=== PATIENT | male | born 1965 | race Caucasian/White ===

== ENCOUNTER 2018-02-24 02:48 | Inpatient (IN) ==
[2018-02-24] MEDS ORDERED: Ipratropium/Albuterol Neb 3 ML IH ONE (03:10)
[2018-02-24] MEDS ORDERED: methylPREDNISolone 125 MG/2 ML VIAL IVP ONE (03:11)
[2018-02-24] MEDS ORDERED: 0.9 % Sodium Chloride 1,000 ML IVC ONE (03:12)
[2018-02-24 03:24] LABS: Basophils % 0.5 %; Eosinophils # 0.1 K/mcL (0.0-0.6); Eosinophils % 0.9 %; Hematocrit 37.9 % (37.5-50.1); Hemoglobin 12.4 g/dL (12.9-16.9); Immature Granulocytes % 2.7 % (0-4); Lymphocytes # 1.1 K/mcL (0.6-4.6); Lymphocytes % 12.7 %; Mean Corpuscular HGB Conc 32.7 g/dL (31.6-35.5); Mean Corpuscular Hemoglobin 29.7 pg (28.0-33.3); Mean Corpuscular Volume 90.9 fL (83.0-100.0); Mean Platelet Volume 9.3 fL (9.4-12.4); Monocytes # 0.3 K/mcL (0.0-1.3); Monocytes % 3.6 %; Neutrophils # 6.9 K/mcL (1.6-8.9); Platelet Count 201 K/mcL (140-400); Red Blood Count 4.17 M/mcL (4.19-5.50); Red Cell Distribution Width 14.3 % (11.5-14.5); Segmented Neutrophils % 79.6 %
[2018-02-24] MEDS ORDERED: cefTRIAXone 1,000 MG in Water for inj. (sterile) 20 ML 10 ML IVP ONE (03:35)
[2018-02-24] MEDS ORDERED: Azithromycin 500 MG in D5% in Water 250 ML IVPB ONE (03:35)
[2018-02-24] MEDS ORDERED: Acetaminophen IV 1,000 MG/100 ML INFUS..BTL IVPB ONE (03:36)
--- NOTE | 2018-02-24 03:40 | Emergency Department Note ---
Disposition Clinical Impression: Pneumonia Qualifiers: Aspiration pneumonia type: unspecified Laterality: unspecified laterality Lung location: unspecified part of lung Disposition: Admitted As Inpatient Condition: Good General Adult HPI - General Chief complaint: ED Shortness of Breath/Dyspnea Stated complaint: COLIN Time Seen by Provider: 02/24/18 02:53 Source: patient, family Limitations: no limitations - History of Present Illness Pain Scale: 0 - Related Data Home Medications Medication Instructions Recorded Confirmed Amitriptyline [Elavil] 150 mg PO HS 02/24/18 02/24/18 Amlodipine Besylate 10 mg PO DAILY 02/24/18 02/24/18 Atorvastatin [Lipitor] 20 mg PO HS 02/24/18 02/24/18 Butalbit/Acetamin/Caff/Codeine 1 each PO PRN PRN 02/24/18 02/24/18 [Aoirfz-Qitj-Drhanqrwgdl-Codein] Chlorpromazine HCl 10 mg PO TID 02/24/18 02/24/18 Divalproex Sodium [Depakote] 750 mg PO BID 02/24/18 02/24/18 Donepezil [Aricept] 5 mg PO HS 02/24/18 02/24/18 Folic Acid 1 mg PO DAILY 02/24/18 02/24/18 Furosemide [Lasix] 20 mg PO DAILY 02/24/18 02/24/18 HYDROcodone/Acet 5/325 mg [[place] 1 tab PO Q6H PRN 02/24/18 02/24/18 5-325 mg] Levothyroxine Sodium [Synthroid] 200 mcg PO DAILY 02/24/18 02/24/18 Metoprolol Succinate 50 mg PO HS 02/24/18 02/25/18 Metoprolol Succinate 100 mg PO DAILY 02/24/18 02/24/18 Pantoprazole Sodium [Protonix] 40 mg PO DAILY 02/24/18 02/24/18 SUMAtriptan Succinate [[place] 6 mg SQ PRN PRN MDD 12mg 02/24/18 02/24/18 Dosepro] SUMAtriptan succinate [Imitrex] 25 mg PO Q2H PRN MDD 50 MG 02/24/18 02/24/18 clonazePAM [Klonopin] 1 mg PO TID 02/24/18 02/24/18 Albuterol Sulfate [Albuterol 1 puff IH Q6H PRN 02/26/18 02/26/18 Inhaler] Previous Rx's Medication Instructions Recorded Levofloxacin [Levaquin] 750 mg PO DAILY #5 tablet 02/26/18 Allergies Allergy/AdvReac Type Severity Reaction Status Date / Time Penicillins AdvReac Intermediate Vomiting Verified 02/24/18 02:49 Past Medical History - Past Medical History Medical history: Reports: COPD, hyperlipidemia, hypertension, migraine, thyroid disease Surgical history: Reports: knee replacement Psychiatric history: Reports: anxiety, depression - Social History Smoking Status: Never smoker Smokeless Tobacco Status: No Alcohol use: Reports: none Drug use: Reports: none Physical Exam - General Limitations: no limitations General appearance: alert Course Vital Signs Temperature 98.1 F 02/24/18 02:49 Pulse Rate 140 02/24/18 02:49 Respiratory Rate 29 02/24/18 02:49 Blood Pressure 129/75 02/24/18 02:49 O2 Sat by Pulse Oximetry 89 02/24/18 02:49 Temperature 97.8 F 02/26/18 10:15 Pulse Rate 89 02/26/18 10:15 Respiratory Rate 18 02/26/18 10:15 Blood Pressure 110/75 02/26/18 10:15 O2 Sat by Pulse Oximetry 96 02/26/18 10:15 Oxygen Delivery Oxygen Delivery Nasal Cannula Medical Decision Making - Lab Data Result diagrams: 02/26/18 04:06 02/26/18 04:06 Lab Results 02/24/18 02/24/18 02/24/18 Range/Units 03:08 03:08 03:09 WBC 8.6 (4.3-11.1) K/mcL RBC 4.17 L (4.19-5.50) M/mcL Hgb 12.4 L (12.9-16.9) g/dL Hct 37.9 (37.5-50.1) % MCV 90.9 (83.0-100.0) fL MCH 29.7 (28.0-33.3) pg MCHC 32.7 (31.6-35.5) g/dL RDW 14.3 (11.5-14.5) % Plt Count 201 (140-400) K/mcL MPV 9.3 L (9.4-12.4) fL Immature Gran % 2.7 (0-4) % Seg Neutrophils % 79.6 % Lymphocytes % 12.7 % Monocytes % 3.6 % Eosinophils % 0.9 % Basophils % 0.5 % Neutrophils # 6.9 (1.6-8.9) K/mcL Lymphocytes # 1.1 (0.6-4.6) K/mcL Monocytes # 0.3 (0.0-1.3) K/mcL Eosinophils # 0.1 (0.0-0.6) K/mcL Basophils # 0.0 (0.0-0.2) K/mcL Platelet Estimate (Normal) Hypochromasia (Not Present) PT (9.4-12.1) Seconds INR APTT (26.0-36.0) Seconds Sodium 134 L (136-145) mEq/L Potassium 4.5 (3.5-5.1) mEq/L Chloride 95 L (98-107) mEq/L Carbon Dioxide 26 (23-29) mEq/L BUN 8 (6-20) mg/dL Creatinine 0.95 (0.70-1.30) mg/dL Est GFR ( Amer) > 60 (> 60) Est GFR (Non-Af Amer) > 60 (> 60) BUN/Creatinine Ratio 8 (6-26) Glucose 145 H (70-105) mg/dL Calculated Osmolality 279 L (280-300) Lactic Acid 4.2 H* (0.5-2.2) mmol/L Calcium 9.3 (8.6-10.3) mg/dL Total Bilirubin 0.5 (0.3-1.0) mg/dL AST 26 (13-39) Units/L ALT 38 (7-52) Units/L Alkaline Phosphatase 62 (34-104) Units/L Troponin I < 0.03 (< 0.04) ng/mL Serum Total Protein 7.0 (6.4-8.9) g/dL Albumin 4.1 (3.5-5.7) g/dL Globulin 2.9 (2.4-3.5) g/dL Albumin/Globulin Ratio 1.4 (1.1-2.2) Procalcitonin (<=0.10) ng/mL Urine Color (Yellow) Urine Clarity (Clear) Urine pH (5.0-8.0) pH Units Ur Specific [place] (1.010-1.025) Urine Protein (Neg-Trace) mg/dL Urine Glucose (UA) (Normal) mg/dL Urine Ketones (Negative) mg/dL Urine Blood (Negative) Urine Nitrite (Negative) Urine Bilirubin (Negative) Urine Urobilinogen (Normal) mg/dL Ur Leukocyte Esterase (Negative) Nasal Screen MRSA (PCR) (Negative) Random Tobramycin mcg/mL 02/24/18 02/24/18 02/24/18 Range/Units 03:09 06:25 13:53 WBC (4.3-11.1) K/mcL RBC (4.19-5.50) M/mcL Hgb (12.9-16.9) g/dL Hct (37.5-50.1) % MCV (83.0-100.0) fL MCH (28.0-33.3) pg MCHC (31.6-35.5) g/dL RDW (11.5-14.5) % Plt Count (140-400) K/mcL MPV (9.4-12.4) fL Immature Gran % (0-4) % Seg Neutrophils % % Lymphocytes % % Monocytes % % Eosinophils % % Basophils % % Neutrophils # (1.6-8.9) K/mcL Lymphocytes # (0.6-4.6) K/mcL Monocytes # (0.0-1.3) K/mcL Eosinophils # (0.0-0.6) K/mcL Basophils # (0.0-0.2) K/mcL Platelet Estimate (Normal) Hypochromasia (Not Present) PT 10.2 (9.4-12.1) Seconds INR 1.0 APTT 33.5 (26.0-36.0) Seconds Sodium (136-145) mEq/L Potassium (3.5-5.1) mEq/L Chloride (98-107) mEq/L Carbon Dioxide (23-29) mEq/L BUN (6-20) mg/dL Creatinine (0.70-1.30) mg/dL Est GFR ( Amer) (> 60) Est GFR (Non-Af Amer) (> 60) BUN/Creatinine Ratio (6-26) Glucose (70-105) mg/dL Calculated Osmolality (280-300) Lactic Acid 3.4 H (0.5-2.2) mmol/L Calcium (8.6-10.3) mg/dL Total Bilirubin (0.3-1.0) mg/dL AST (13-39) Units/L ALT (7-52) Units/L Alkaline Phosphatase (34-104) Units/L Troponin I (< 0.04) ng/mL Serum Total Protein (6.4-8.9) g/dL Albumin (3.5-5.7) g/dL Globulin (2.4-3.5) g/dL Albumin/Globulin Ratio (1.1-2.2) Procalcitonin (<=0.10) ng/mL Urine Color (Yellow) Urine Clarity (Clear) Urine pH (5.0-8.0) pH Units Ur Specific [place] (1.010-1.025) Urine Protein (Neg-Trace) mg/dL Urine Glucose (UA) (Normal) mg/dL Urine Ketones (Negative) mg/dL Urine Blood (Negative) Urine Nitrite (Negative) Urine Bilirubin (Negative) Urine Urobilinogen (Normal) mg/dL Ur Leukocyte Esterase (Negative) Nasal Screen MRSA (PCR) (Negative) Random Tobramycin 1.2 mcg/mL 02/24/18 02/24/18 02/25/18 Range/Units 13:53 17:19 04:19 WBC 13.8 H D (4.3-11.1) K/mcL RBC 3.25 L (4.19-5.50) M/mcL Hgb 9.3 L D (12.9-16.9) g/dL Hct 29.0 L (37.5-50.1) % MCV 89.2 (83.0-100.0) fL MCH 28.6 (28.0-33.3) pg MCHC 32.1 (31.6-35.5) g/dL RDW 14.3 (11.5-14.5) % Plt Count 191 (140-400) K/mcL MPV 9.6 (9.4-12.4) fL Immature Gran % 5.1 H (0-4) % Seg Neutrophils % 82.5 % Lymphocytes % 7.2 % Monocytes % 4.8 % Eosinophils % 0.0 % Basophils % 0.4 % Neutrophils # 11.4 H (1.6-8.9) K/mcL Lymphocytes # 1.0 (0.6-4.6) K/mcL Monocytes # 0.7 (0.0-1.3) K/mcL Eosinophils # 0.0 (0.0-0.6) K/mcL Basophils # 0.1 (0.0-0.2) K/mcL Platelet Estimate Normal (Normal) Hypochromasia Present A (Not Present) PT (9.4-12.1) Seconds INR APTT (26.0-36.0) Seconds Sodium (136-145) mEq/L Potassium (3.5-5.1) mEq/L Chloride (98-107) mEq/L Carbon Dioxide (23-29) mEq/L BUN (6-20) mg/dL Creatinine (0.70-1.30) mg/dL Est GFR ( Amer) (> 60) Est GFR (Non-Af Amer) (> 60) BUN/Creatinine Ratio (6-26) Glucose (70-105) mg/dL Calculated Osmolality (280-300) Lactic Acid 5.3 H* (0.5-2.2) mmol/L Calcium (8.6-10.3) mg/dL Total Bilirubin (0.3-1.0) mg/dL AST (13-39) Units/L ALT (7-52) Units/L Alkaline Phosphatase (34-104) Units/L Troponin I (< 0.04) ng/mL Serum Total Protein (6.4-8.9) g/dL Albumin (3.5-5.7) g/dL Globulin (2.4-3.5) g/dL Albumin/Globulin Ratio (1.1-2.2) Procalcitonin (<=0.10) ng/mL Urine Color (Yellow) Urine Clarity (Clear) Urine pH (5.0-8.0) pH Units Ur Specific [place] (1.010-1.025) Urine Protein (Neg-Trace) mg/dL Urine Glucose (UA) (Normal) mg/dL Urine Ketones (Negative) mg/dL Urine Blood (Negative) Urine Nitrite (Negative) Urine Bilirubin (Negative) Urine Urobilinogen (Normal) mg/dL Ur Leukocyte Esterase (Negative) Nasal Screen MRSA (PCR) Negative (Negative) Random Tobramycin mcg/mL 02/25/18 02/25/18 02/25/18 Range/Units 04:19 04:19 08:01 WBC (4.3-11.1) K/mcL RBC (4.19-5.50) M/mcL Hgb (12.9-16.9) g/dL Hct (37.5-50.1) % MCV (83.0-100.0) fL MCH (28.0-33.3) pg MCHC (31.6-35.5) g/dL RDW (11.5-14.5) % Plt Count (140-400) K/mcL MPV (9.4-12.4) fL Immature Gran % (0-4) % Seg Neutrophils % % Lymphocytes % % Monocytes % % Eosinophils % % Basophils % % Neutrophils # (1.6-8.9) K/mcL Lymphocytes # (0.6-4.6) K/mcL Monocytes # (0.0-1.3) K/mcL Eosinophils # (0.0-0.6) K/mcL Basophils # (0.0-0.2) K/mcL Platelet Estimate (Normal) Hypochromasia (Not Present) PT (9.4-12.1) Seconds INR APTT (26.0-36.0) Seconds Sodium 131 L (136-145) mEq/L Potassium 4.4 (3.5-5.1) mEq/L Chloride 98 (98-107) mEq/L Carbon Dioxide 24 (23-29) mEq/L BUN 13 (6-20) mg/dL Creatinine 0.76 (0.70-1.30) mg/dL Est GFR ( Amer) > 60 (> 60) Est GFR (Non-Af Amer) > 60 (> 60) BUN/Creatinine Ratio 17 (6-26) Glucose 217 H (70-105) mg/dL Calculated Osmolality 279 L (280-300) Lactic Acid 2.7 H (0.5-2.2) mmol/L Calcium 8.7 (8.6-10.3) mg/dL Total Bilirubin (0.3-1.0) mg/dL AST (13-39) Units/L ALT (7-52) Units/L Alkaline Phosphatase (34-104) Units/L Troponin I (< 0.04) ng/mL Serum Total Protein (6.4-8.9) g/dL Albumin (3.5-5.7) g/dL Globulin (2.4-3.5) g/dL Albumin/Globulin Ratio (1.1-2.2) Procalcitonin 0.11 H (<=0.10) ng/mL Urine Color (Yellow) Urine Clarity (Clear) Urine pH (5.0-8.0) pH Units Ur Specific [place] (1.010-1.025) Urine Protein (Neg-Trace) mg/dL Urine Glucose (UA) (Normal) mg/dL Urine Ketones (Negative) mg/dL Urine Blood (Negative) Urine Nitrite (Negative) Urine Bilirubin (Negative) Urine Urobilinogen (Normal) mg/dL Ur Leukocyte Esterase (Negative) Nasal Screen MRSA (PCR) (Negative) Random Tobramycin mcg/mL 02/25/18 02/25/18 02/26/18 Range/Units 11:51 20:00 04:06 WBC 14.2 H 11.9 H (4.3-11.1) K/mcL RBC 3.49 L 3.48 L (4.19-5.50) M/mcL Hgb 10.3 L 10.1 L (12.9-16.9) g/dL Hct 31.6 L 31.3 L (37.5-50.1) % MCV 90.5 89.9 (83.0-100.0) fL MCH 29.5 29.0 (28.0-33.3) pg MCHC 32.6 32.3 (31.6-35.5) g/dL RDW 14.4 14.9 H (11.5-14.5) % Plt Count 205 218 (140-400) K/mcL MPV 9.4 9.2 L (9.4-12.4) fL Immature Gran % 5.0 H 9.9 H (0-4) % Seg Neutrophils % 81.8 65.0 % Lymphocytes % 7.7 17.9 % Monocytes % 5.1 6.6 % Eosinophils % 0.0 0.3 % Basophils % 0.4 0.3 % Neutrophils # 11.6 H 7.7 (1.6-8.9) K/mcL Lymphocytes # 1.1 2.1 (0.6-4.6) K/mcL Monocytes # 0.7 0.8 (0.0-1.3) K/mcL Eosinophils # 0.0 0.0 (0.0-0.6) K/mcL Basophils # 0.1 0.0 (0.0-0.2) K/mcL Platelet Estimate Normal (Normal) Hypochromasia (Not Present) PT (9.4-12.1) Seconds INR APTT (26.0-36.0) Seconds Sodium (136-145) mEq/L Potassium (3.5-5.1) mEq/L Chloride (98-107) mEq/L Carbon Dioxide (23-29) mEq/L BUN (6-20) mg/dL Creatinine (0.70-1.30) mg/dL Est GFR ( Amer) (> 60) Est GFR (Non-Af Amer) (> 60) BUN/Creatinine Ratio (6-26) Glucose (70-105) mg/dL Calculated Osmolality (280-300) Lactic Acid (0.5-2.2) mmol/L Calcium (8.6-10.3) mg/dL Total Bilirubin (0.3-1.0) mg/dL AST (13-39) Units/L ALT (7-52) Units/L Alkaline Phosphatase (34-104) Units/L Troponin I (< 0.04) ng/mL Serum Total Protein (6.4-8.9) g/dL Albumin (3.5-5.7) g/dL Globulin (2.4-3.5) g/dL Albumin/Globulin Ratio (1.1-2.2) Procalcitonin (<=0.10) ng/mL Urine Color Yellow (Yellow) Urine Clarity Clear (Clear) Urine pH 6.0 (5.0-8.0) pH Units Ur Specific [place] 1.019 (1.010-1.025) Urine Protein Negative (Neg-Trace) mg/dL Urine Glucose (UA) Normal (Normal) mg/dL Urine Ketones Negative (Negative) mg/dL Urine Blood Negative (Negative) Urine Nitrite Negative (Negative) Urine Bilirubin Negative (Negative) Urine Urobilinogen Normal (Normal) mg/dL Ur Leukocyte Esterase Negative (Negative) Nasal Screen MRSA (PCR) (Negative) Random Tobramycin mcg/mL 02/26/18 02/26/18 Range/Units 04:06 04:06 WBC (4.3-11.1) K/mcL RBC (4.19-5.50) M/mcL Hgb (12.9-16.9) g/dL Hct (37.5-50.1) % MCV (83.0-100.0) fL MCH (28.0-33.3) pg MCHC (31.6-35.5) g/dL RDW (11.5-14.5) % Plt Count (140-400) K/mcL MPV (9.4-12.4) fL Immature Gran % (0-4) % Seg Neutrophils % % Lymphocytes % % Monocytes % % Eosinophils % % Basophils % % Neutrophils # (1.6-8.9) K/mcL Lymphocytes # (0.6-4.6) K/mcL Monocytes # (0.0-1.3) K/mcL Eosinophils # (0.0-0.6) K/mcL Basophils # (0.0-0.2) K/mcL Platelet Estimate (Normal) Hypochromasia (Not Present) PT (9.4-12.1) Seconds INR APTT (26.0-36.0) Seconds Sodium 139 (136-145) mEq/L Potassium 4.0 (3.5-5.1) mEq/L Chloride 103 (98-107) mEq/L Carbon Dioxide 27 (23-29) mEq/L BUN 15 (6-20) mg/dL Creatinine 0.89 (0.70-1.30) mg/dL Est GFR ( Amer) > 60 (> 60) Est GFR (Non-Af Amer) > 60 (> 60) BUN/Creatinine Ratio 17 (6-26) Glucose 158 H (70-105) mg/dL Calculated Osmolality 292 (280-300) Lactic Acid 1.8 (0.5-2.2) mmol/L Calcium 8.7 (8.6-10.3) mg/dL Total Bilirubin (0.3-1.0) mg/dL AST (13-39) Units/L ALT (7-52) Units/L Alkaline Phosphatase (34-104) Units/L Troponin I (< 0.04) ng/mL Serum Total Protein (6.4-8.9) g/dL Albumin (3.5-5.7) g/dL Globulin (2.4-3.5) g/dL Albumin/Globulin Ratio (1.1-2.2) Procalcitonin (<=0.10) ng/mL Urine Color (Yellow) Urine Clarity (Clear) Urine pH (5.0-8.0) pH Units Ur Specific [place] (1.010-1.025) Urine Protein (Neg-Trace) mg/dL Urine Glucose (UA) (Normal) mg/dL Urine Ketones (Negative) mg/dL Urine Blood (Negative) Urine Nitrite (Negative) Urine Bilirubin (Negative) Urine Urobilinogen (Normal) mg/dL Ur Leukocyte Esterase (Negative) Nasal Screen MRSA (PCR) (Negative) Random Tobramycin mcg/mL Attestation Statement - Attestation Attestation: I examined this patient and my medical decision-making was reviewed with the Resident Physician. I agree with the documented findings, disposition and treatment plan as described except to the extent set forth below. Findings consistent with possibly pneumonia, will calculate curb 65 score and reassess and determine need for admission. Patient will need community pneumonia coverage , final disposition is pending results of imaging and response to intervention as well as calculation of curb 65. The high probability of a clinically significant, sudden or life threatening deterioration of the [respiratory] system(s) required my full and direct attention, intervention and personal management. The aggregate critical care time was [35] minutes. This time is in addition to time spent performing reported procedures but includes the following: none Patient has possible HCAP, will need admission for further management.
[2018-02-24] MEDS ORDERED: Piperacillin/Tazobactam 3.375 GM in 0.9 % Sodium Chloride Mini Bag 100 ML IVPB ONE (03:42)
[2018-02-24 03:44] LABS: Alanine Aminotransferase 38 Units/L (7-52); Albumin 4.1 g/dL (3.5-5.7); Albumin/Globulin Ratio 1.4 (1.1-2.2); Alkaline Phosphatase 62 Units/L (34-104); Aspartate Amino Transferase 26 Units/L (13-39); BUN/Creatinine Ratio 8 (6-26); Bilirubin,Total 0.5 mg/dL (0.3-1.0); Blood Urea Nitrogen 8 mg/dL (6-20); Calcium 9.3 mg/dL (8.6-10.3); Carbon Dioxide 26 mEq/L (23-29); Chloride 95 mEq/L (98-107); Globulin 2.9 g/dL (2.4-3.5); Glucose 145 mg/dL (70-105); Osmolality,Calculated 279 (280-300); Potassium 4.5 mEq/L (3.5-5.1); Sodium 134 mEq/L (136-145); eGFR For African Americans > 60 (> 60); eGFR For Non-African Americans > 60 (> 60)
[2018-02-24] MEDS ORDERED: Isovue-370 500 ML INFUS..BTL IV ONE (03:44)
[2018-02-24 03:45] LABS: Troponin I < 0.03 ng/mL (< 0.04)
[2018-02-24] MEDS ORDERED: TOBRAMYCIN SULF IVPB SCH ×2 (04:00→06:00)
[2018-02-24] MEDS ORDERED: WATER IVPB SCH ×2 (04:00→06:00)
[2018-02-24] MEDS ORDERED: D5 IVPB SCH ×2 (04:00→06:00)
[2018-02-24 04:34] LABS: Prothrombin Time 10.2 Seconds (9.4-12.1)
--- NOTE | 2018-02-24 04:34 | Emergency Department Note ---
Disposition Clinical Impression: Pneumonia Qualifiers: Pneumonia type: due to unspecified organism Laterality: unspecified laterality Lung location: unspecified part of lung Qualified Code(s): J18.9 - Pneumonia, unspecified organism Sepsis Qualifiers: Sepsis type: sepsis due to unspecified organism Qualified Code(s): A41.9 - Sepsis, unspecified organism Disposition: Admitted As Inpatient Condition: Fair General Adult HPI - General Chief complaint: ED Shortness of Breath/Dyspnea Stated complaint: COLIN Time Seen by Provider: 02/24/18 02:53 Source: patient, family Limitations: no limitations Nursing Notes Reviewed: Yes Vital Signs Reviewed: Yes - History of Present Illness HPI Narrative: 52-year-old male presents with shortness of breath since yesterday. Patient has a history of aspiration pneumonia in August this year. He was admitted to ICU for 10 days. Since then he frequently had pneumonia. He was admitted for pneumonia in [place] a month ago. Patient is on 4 L NS at home. Patient reported mild dry cough and shortness of breath since yesterday. Started feeling chills today. No chest pain. Onset (ago): day(s) (2) Location: other (lungs) Pain Scale: 0 Consistency: constant Improves with: nothing Associated symptoms: Reports: cough. Denies: confusion, chest pain - Related Data Allergies Allergy/AdvReac Type Severity Reaction Status Date / Time Penicillins AdvReac Intermediate Vomiting Verified 02/24/18 02:49 Constitutional: Reports: chills. Denies: fever, weakness, weight change Eyes: Denies: eye pain, eye discharge, vision change ENT ED: Denies: ear pain, throat pain, dental pain, hearing loss, epistaxis, congestion, dysphagia Cardiovascular: Denies: chest pain, palpitations, dyspnea on exertion, edema, syncope Respiratory: Reports: cough, dyspnea. Denies: wheezes, hemoptysis, stridor Gastrointestinal: Denies: abdominal pain, nausea, vomiting, diarrhea, constipation, hematemesis, melena, hematochezia Genitourinary: Denies: urgency, dysuria, frequency, hematuria Musculoskeletal: Denies: back pain, neck pain, arthralgia, myalgia Integumentary: Denies: rash, abrasion, lesions Neurological: Denies: headache, weakness, numbness, paresthesias, confusion, abnormal gait, vertigo Psychiatric: Denies: anxiety, depression, suicidal thoughts, homicidal thoughts , auditory hallucinations, visual hallucinations Endocrine: Denies: fatigue Hematological/Lymphatic: Denies: easy bleeding, easy bruising Allergic/Immunologic: Denies: facial swelling, urticaria Past Medical History - Past Medical History Medical history: Reports: COPD, hyperlipidemia, hypertension, migraine, thyroid disease Surgical history: Reports: knee replacement Psychiatric history: Reports: anxiety, depression - Social History Smoking Status: Never smoker Smokeless Tobacco Status: No Alcohol use: Reports: none Drug use: Reports: none Physical Exam - General Limitations: no limitations General appearance: alert - Head Head exam: atraumatic, normocephalic, normal inspection - Eye Eye exam: Present: normal appearance, PERRL, EOMI - ENT ENT exam: normal exam, normal oropharynx, mucous membranes moist - Neck Neck exam: Present: normal inspection, full ROM, trachea midline - Chest Chest inspection: Present: normal inspection, symmetric chest wall rise - Respiratory Respiratory exam: Present: respiratory distress, other (Bilateral lungs sound diminished) - Cardiovascular Cardiovascular exam: Present: tachycardia - Abdominal Exam Abdominal exam: Present: soft, Non-Tender. Absent: tenderness, distention, guarding, rebound, rigidity - Extremities Exam Extremities exam: Present: normal inspection, full ROM. Absent: tenderness, pedal edema - Back Exam Back exam: Present: normal inspection, full ROM. Absent: tenderness - Neurological Exam Neurological exam: Present: alert, oriented X3 - Psychiatric Psychiatric exam: Present: normal affect, normal mood - Skin Skin exam: Present: warm, dry, intact Course Vital Signs Temperature 98.1 F 02/24/18 02:49 Pulse Rate 140 02/24/18 02:49 Respiratory Rate 29 02/24/18 02:49 Blood Pressure 129/75 02/24/18 02:49 O2 Sat by Pulse Oximetry 89 02/24/18 02:49 Temperature 98.1 F 02/24/18 02:49 Pulse Rate 115 02/24/18 05:47 Respiratory Rate 31 02/24/18 05:47 Blood Pressure 116/80 02/24/18 05:47 O2 Sat by Pulse Oximetry 93 02/24/18 05:47 Oxygen Delivery Oxygen Delivery Nasal Cannula Medical Decision Making - MDM Narrative Medical decision making narrative: 52-year-old male with a history of aspiration pneumonia, frequent pneumonia presents with shortness breath for 2 days. Physical exam: Labored breath with respiratory rate 27, O2 sat 89 with 4 L nasal cannula, bilateral lung sounds diminished, tachycardia with heart rates 140. Labs white cell normal, but lactic acid 4.2. Chest x-ray: Pneumonia. CTA ruled out PE. Impression pneumonia with sepsis. IV fluids and antibiotics started in ER. Patient will be admitted. Spoke with the hospitalist in the phone. Patient is accepted. - Lab Data Lab results reviewed: Yes I reviewed the patient's lab results. Result diagrams: 02/24/18 03:08 02/24/18 03:08 Lab Results 02/24/18 02/24/18 02/24/18 Range/Units 03:08 03:08 03:09 WBC 8.6 (4.3-11.1) K/mcL RBC 4.17 L (4.19-5.50) M/mcL Hgb 12.4 L (12.9-16.9) g/dL Hct 37.9 (37.5-50.1) % MCV 90.9 (83.0-100.0) fL MCH 29.7 (28.0-33.3) pg MCHC 32.7 (31.6-35.5) g/dL RDW 14.3 (11.5-14.5) % Plt Count 201 (140-400) K/mcL MPV 9.3 L (9.4-12.4) fL Immature Gran % 2.7 (0-4) % Seg Neutrophils % 79.6 % Lymphocytes % 12.7 % Monocytes % 3.6 % Eosinophils % 0.9 % Basophils % 0.5 % Neutrophils # 6.9 (1.6-8.9) K/mcL Lymphocytes # 1.1 (0.6-4.6) K/mcL Monocytes # 0.3 (0.0-1.3) K/mcL Eosinophils # 0.1 (0.0-0.6) K/mcL Basophils # 0.0 (0.0-0.2) K/mcL PT (9.4-12.1) Seconds INR APTT (26.0-36.0) Seconds Sodium 134 L (136-145) mEq/L Potassium 4.5 (3.5-5.1) mEq/L Chloride 95 L (98-107) mEq/L Carbon Dioxide 26 (23-29) mEq/L BUN 8 (6-20) mg/dL Creatinine 0.95 (0.70-1.30) mg/dL Est GFR ( Amer) > 60 (> 60) Est GFR (Non-Af Amer) > 60 (> 60) BUN/Creatinine Ratio 8 (6-26) Glucose 145 H (70-105) mg/dL Calculated Osmolality 279 L (280-300) Lactic Acid 4.2 H* (0.5-2.2) mmol/L Calcium 9.3 (8.6-10.3) mg/dL Total Bilirubin 0.5 (0.3-1.0) mg/dL AST 26 (13-39) Units/L ALT 38 (7-52) Units/L Alkaline Phosphatase 62 (34-104) Units/L Troponin I < 0.03 (< 0.04) ng/mL Serum Total Protein 7.0 (6.4-8.9) g/dL Albumin 4.1 (3.5-5.7) g/dL Globulin 2.9 (2.4-3.5) g/dL Albumin/Globulin Ratio 1.4 (1.1-2.2) 02/24/18 Range/Units 03:09 WBC (4.3-11.1) K/mcL RBC (4.19-5.50) M/mcL Hgb (12.9-16.9) g/dL Hct (37.5-50.1) % MCV (83.0-100.0) fL MCH (28.0-33.3) pg MCHC (31.6-35.5) g/dL RDW (11.5-14.5) % Plt Count (140-400) K/mcL MPV (9.4-12.4) fL Immature Gran % (0-4) % Seg Neutrophils % % Lymphocytes % % Monocytes % % Eosinophils % % Basophils % % Neutrophils # (1.6-8.9) K/mcL Lymphocytes # (0.6-4.6) K/mcL Monocytes # (0.0-1.3) K/mcL Eosinophils # (0.0-0.6) K/mcL Basophils # (0.0-0.2) K/mcL PT 10.2 (9.4-12.1) Seconds INR 1.0 APTT 33.5 (26.0-36.0) Seconds Sodium (136-145) mEq/L Potassium (3.5-5.1) mEq/L Chloride (98-107) mEq/L Carbon Dioxide (23-29) mEq/L BUN (6-20) mg/dL Creatinine (0.70-1.30) mg/dL Est GFR ( Amer) (> 60) Est GFR (Non-Af Amer) (> 60) BUN/Creatinine Ratio (6-26) Glucose (70-105) mg/dL Calculated Osmolality (280-300) Lactic Acid (0.5-2.2) mmol/L Calcium (8.6-10.3) mg/dL Total Bilirubin (0.3-1.0) mg/dL AST (13-39) Units/L ALT (7-52) Units/L Alkaline Phosphatase (34-104) Units/L Troponin I (< 0.04) ng/mL Serum Total Protein (6.4-8.9) g/dL Albumin (3.5-5.7) g/dL Globulin (2.4-3.5) g/dL Albumin/Globulin Ratio (1.1-2.2) - Radiology Data Radiology results reviewed: Yes I reviewed the patient's radiology results.
[2018-02-24 04:37] LABS: Activated Partial Thrombo Time 33.5 Seconds (26.0-36.0)
[2018-02-24] MEDS: 0.9 % Sodium Chloride 1,000 ML IVC SCH ×2 (04:48→05:03)
[2018-02-24] MEDS ORDERED: 0.9 % Sodium Chloride 500 ML IVC ONE (05:21)
[2018-02-24] MEDS ORDERED: Aminoglycoside Consult 1 EACH MC ONE ×2 (05:34)
[2018-02-24] MEDS ORDERED: Acetaminophen 325 MG TABLET PO PRN (08:33)
[2018-02-24] MEDS ORDERED: Naloxone 0.4 MG/ML INJ IVP PRN (08:33)
[2018-02-24] MEDS ORDERED: SUMAtriptan 6 MG/0.5 ML SQ PRN (08:34)
[2018-02-24] MEDS ORDERED: Acetaminophen/Butalbital/CaffeineTABLET PO PRN (08:34)
--- NOTE | 2018-02-24 09:42 | Internal Med History&Physical ---
Date of Encounter: 02/24/18 Time of Encounter: 09:30 Internal Medicine - H&P: HPI Chief complaint: Shortness of breath, fever and chills Admitted From: Emergency Dept Plans for Post Hospital Care: Home History of present illness: Mr. Barnard is a 52 year old male patient with history of COPD, chronic respiratory failure on 4 L home oxygen who was hospitalized here last month for about of pneumonia and discharged home on oral antibiotics presented to the ER with complaints of fever and chills along with malaise and shortness of breath that began yesterday. He had previously been doing well and had recovered from his prior episode of pneumonia. He denies any palpitations. He denies any nausea or vomiting. He does not have Sputum production but he does have a lot of cough with resulting pleuritic chest pain. He was feeling very chilly and cold on the way here. He now feels better after he received some nebulizer treatment in the ER along with antibiotics and steroids. Past Med Surg Social Fam HX - Past Medical History Attestation: Yes The following information was validated with the patient. Source: patient Medical history: COPD, hyperlipidemia, hypertension, migraine, thyroid disease Psychiatric history: anxiety, depression - Past Surgical History Surgical History: knee replacement Additional surgical history: bilat knee surgery - Social History Smoking Status: Never smoker Smokeless Tobacco Status: No Alcohol use: none Drug use: none - Family History Father Family Member Ethnicity: Non- Living Status: Hx Family Cardiac Disorders: Yes ([place]) Mother Family Member Ethnicity: Non- Living Status: Hx Family Respiratory Disorders: Yes (Alpha 1 antitrypsin deficiency) Hx Family Cancer: Yes (Adrenal, lung) Hx Family Endocrine Disorder: Yes (Thyroid disease) Brother Family Member Ethnicity: Non- Living Status: Still Living Sister Family Member Ethnicity: Non- Living Status: Still Living Hx Family Cardiac Disorders: Yes (CAD) Hx Family Respiratory Disorders: Yes (Alpha 1 antitrypsin deficiency) Internal Medicine - H&P: Meds Amitriptyline [Elavil] 150 mg PO HS 02/24/18 [History] Amlodipine Besylate 10 mg PO DAILY 02/24/18 [History] Atorvastatin [Lipitor] 20 mg PO HS 02/24/18 [History] Butalbit/Acetamin/Caff/Codeine [Igmgcd-Siwm-Jedpraqscph-Codein] 1 each PO PRN PRN 02/24/18 [History] Chlorpromazine HCl 10 mg PO TID 02/24/18 [History] Divalproex Sodium [Depakote] 750 mg PO BID 02/24/18 [History] Donepezil [Aricept] 5 mg PO HS 02/24/18 [History] Folic Acid 1 mg PO DAILY 02/24/18 [History] Furosemide [Lasix] 20 mg PO DAILY 02/24/18 [History] HYDROcodone/Acet 5/325 mg [[place] 5-325 mg] 1 tab PO Q6H PRN 02/24/18 [History] Levothyroxine Sodium [Synthroid] 200 mcg PO DAILY 02/24/18 [History] Levothyroxine [Synthroid] 175 mcg PO DAILY 02/24/18 [History] Metoprolol Succinate 50 mg PO DAILY 02/24/18 [History] Metoprolol Succinate 100 mg PO DAILY 02/24/18 [History] Pantoprazole Sodium [Protonix] 40 mg PO DAILY 02/24/18 [History] SUMAtriptan Succinate [Sumavel Dosepro] 6 mg SQ PRN PRN MDD 12mg 02/24/18 [ History] SUMAtriptan succinate [Imitrex] 25 mg PO Q2H PRN MDD 50 MG 02/24/18 [History] clonazePAM [Klonopin] 1 mg PO TID 02/24/18 [History] 3 Allergy/AdvReac Type Severity Reaction Status Date / Time Penicillins AdvReac Intermediate Vomiting Verified 02/24/18 02:49 All Systems PM: A 10-system review of systems was performed and is negative for pertinent findings except as documented above in the HPI. - Constitutional Constitutional: chills, fever(s), malaise - EENT Eyes: no change in vision, no discharge, no pain, no photophobia Ears: no ear discharge, no ear pain, no tinnitus Nose, mouth and throat: no dysphagia, no nasal discharge, no neck pain, no sore throat - Cardiovascular Cardiovascular ROS IM: no chest pain, no diaphoresis, no dyspnea, no lightheadedness, no palpitations, no syncope - Respiratory Respiratory: cough, dyspnea, wheezing, no excessive phlegm production - Gastrointestinal Gastrointestinal: no abdominal pain, no diarrhea, no hematemesis, no hematochezia, no melena, no nausea, no vomiting - Musculoskeletal Musculoskeletal ROS IM: no numbness, no tingling - Integumentary Integumentary IM: no rash, no unusual bruising - Hematologic/Lymphatic Hematologic/Lymphatic: no easy bruising - Constitutional Vitals: Temp Pulse Resp BP Pulse Ox 98.1 F 110 18 125/81 94 02/24/18 06:41 02/24/18 06:41 02/24/18 06:41 02/24/18 06:41 02/24/18 06:41 General appearance: Present: cooperative, mild distress, A&O X 3, pleasant, obese, answers questions appropriately - Neck Neck exam general surgery: Present: supple, trachea midline. Absent: lymphadenopathy - Respiratory Respiratory exam: Present: decreased breath sounds (At both bases), prolonged expiratory phase, wheezes Additional comments: Shallow inspiratory depth - Cardiovascular Cardiovascular exam: Present: RRR, +S1, +S2. Absent: diastolic murmur, gallop, rubs, systolic murmur - GI/Abdominal GI/Abdominal exam: Present: normal bowel sounds, soft, no peritoneal signs. Absent: distended, tenderness - Extremities Exam Extremities exam: Present: warm, radial pulses palpable and symmetrical. Absent : calf tenderness, cyanotic, pedal edema - Neurological Exam Neurological exam: Present: alert, oriented X3, no focal deficits. Absent: facial droop, speech deficit - Skin Skin exam: Present: dry, intact Internal Med - H&P Results - Labs CBC & Chem 7: 02/24/18 03:08 02/24/18 03:08 - Impressions Impressions Chest X-Ray 02/24/18 03:08 IMPRESSION: Persistent multifocal right lung and left basilar airspace disease, likely pneumonia. D/ / Kaveh Mojica MD / Kaveh Mojica MD Interpreting Provider: Kaveh Mojica MD Chest CTA 02/24/18 03:44 IMPRESSION: No evidence of pulmonary embolism. Bilateral airspace disease with bandlike and nodular opacities, greater on the right. Findings are reduced compared to prior examination likely representing sequela of infection. Continued imaging recommended to ensure complete resolution. Evidence of prior granulomatous disease. D/ / 02/24/2018 07:44:05 Jose Peter / lauren Interpreting Provider: Jose Peter - Assessment and plan (1) Sepsis Current Visit: Yes Status: Suspected Assessment and plan: Patient does tachycardia and tachypnea but no fever during his stay here so far. He did describe fever at home along with chills. May be developing pneumonia and sepsis. Will treat with empiric broad-spectrum antibiotics. He does have elevated lactic acid level. This appears to be chronic for the patient. Moderate risk for complications Qualifiers: Sepsis type: sepsis due to unspecified organism Qualified Code(s): A41.9 - Sepsis, unspecified organism (2) Pneumonia Current Visit: Yes Status: Suspected Assessment and plan: CT scan and chest x-ray showed bilateral airspace disease which appeared to be improving compared to findings from prior CT in December. However given his symptoms , he could be developing another episode of pneumonia. Will treat empirically with broad-spectrum antibiotics for now. Check pro-calcitonin level. Follow culture results. If cultures negative and pro-calcitonin level low, I would recommend stopping antibiotics at that time. Qualifiers: Pneumonia type: due to unspecified organism Laterality: bilateral Lung location: unspecified part of lung Qualified Code(s): J18.9 - Pneumonia, unspecified organism (3) Lactic acidosis Current Visit: Yes Status: Acute Assessment and plan: Patient has lactic acidosis with lactic acid level of 4.2 initially which has improved to 3.4. Reviewing his previous labs, patient appears to have chronically elevated lactic acid level. Could be related to his medications or metabolic is in. He is currently not hypotensive. No abdominal discomfort or pain. Will trend lactic acid levels. (4) COPD (chronic obstructive pulmonary disease) Current Visit: No Status: Chronic Assessment and plan: CT scan of the chest shows prior granulomatous disease. He does have wheezing which he reports is not unusual for him. Will continue bronchodilators as needed. Also place him on incentive spirometry. Qualifiers: COPD type: unspecified COPD Qualified Code(s): J44.9 - Chronic obstructive pulmonary disease, unspecified (5) DVT prophylaxis Current Visit: Yes Status: Acute Assessment and plan: With subcutaneous heparin - Time Spent With Patient Total time spent is greater than 50% in coordination of care (as documented) at patient's floor/unit and/or counseling patient:
[2018-02-24] MEDS: Divalproex (12 HR) 250 MG TABLET PO SCH ×2 (09:51→20:25)
[2018-02-24] MEDS: Folic Acid 1 MG TABLET PO SCH (09:52)
[2018-02-24] MEDS: clonazePAM 1 MG TABLET PO SCH ×3 (09:52→20:26)
[2018-02-24] MEDS ORDERED: Ipratropium/Albuterol Neb 3 ML IH PRN (09:53)
[2018-02-24] MEDS: *HR* OxyCODONE/APAP 5/325 TABLET PO PRN ×2 (09:54→20:26)
[2018-02-24] MEDS ORDERED: Vancomycin 0 MG in 0.9 % Sodium Chloride 250 ML IVPB SCH (10:00)
--- NOTE | 2018-02-24 12:26 | Electrocardiograph Report ---
[address] [address] Test Date: 2018-02-24 Pat Name: Cosmo Barnard Department: 103 Room: [facility] Gender: M Manager Hotel: : 1965 Requested By: Tommie Casas Order Number: [id number] Reading MD: Aniceto Cleary Measurements Intervals [place] Rate: 123 P: 47 NE: 191 QRS: 114 QRSD: 107 T: 43 QT: 304 QTc: 377 Interpretive Statements SINUS TACHYCARDIA INDETERMINATE AXIS Electronically Signed On 02-24-2018 12:25:02 EDT by Aniceto Cleary
[2018-02-24] MEDS: CHLORPROMAZINE HCL 10 MG PO SCH ×3 (12:28→20:28)
[2018-02-24] MEDS: Cefepime HCl 2,000 MG in Water for inj. (sterile) 20 ML 20 ML IVP SCH ×2 (12:45→16:52)
[2018-02-24] MEDS: Levofloxacin 750 MG/150 ML 750 MG/150 ML BAG IVPB SCH (12:45)
[2018-02-24] MEDS: Metoprolol XL (24 HR) Succ 50 MG TAB.ER.24H PO SCH ×2 (16:33→20:26)
[2018-02-24] MEDS: *HR* Heparin 5,000 UNIT/ML VIAL SQ SCH (16:52)
[2018-02-25] MEDS: Cefepime HCl 2,000 MG in Water for inj. (sterile) 20 ML 20 ML IVP SCH ×2 (00:28→09:05)
[2018-02-25 04:39] LABS: Basophils # 0.1 K/mcL (0.0-0.2); Basophils % 0.4 %; Immature Granulocytes % 5.1 % (0-4); Lymphocytes % 7.2 %; Mean Corpuscular HGB Conc 32.1 g/dL (31.6-35.5); Mean Corpuscular Hemoglobin 28.6 pg (28.0-33.3); Mean Corpuscular Volume 89.2 fL (83.0-100.0); Mean Platelet Volume 9.6 fL (9.4-12.4); Monocytes # 0.7 K/mcL (0.0-1.3); Monocytes % 4.8 %; Neutrophils # 11.4 K/mcL (1.6-8.9); Platelet Count 191 K/mcL (140-400); Red Blood Count 3.25 M/mcL (4.19-5.50); Red Cell Distribution Width 14.3 % (11.5-14.5); Segmented Neutrophils % 82.5 %
[2018-02-25 04:43] LABS: Hemoglobin 9.3 g/dL (12.9-16.9)
[2018-02-25 04:59] LABS: BUN/Creatinine Ratio 17 (6-26); Blood Urea Nitrogen 13 mg/dL (6-20); Calcium 8.7 mg/dL (8.6-10.3); Carbon Dioxide 24 mEq/L (23-29); Chloride 98 mEq/L (98-107); Glucose 217 mg/dL (70-105); Osmolality,Calculated 279 (280-300); Potassium 4.4 mEq/L (3.5-5.1); Sodium 131 mEq/L (136-145); eGFR For African Americans > 60 (> 60); eGFR For Non-African Americans > 60 (> 60)
[2018-02-25 05:17] LABS: Hypochromasia Present (Not Present); Platelet Estimate Normal (Normal)
[2018-02-25] MEDS: *HR* Heparin 5,000 UNIT/ML VIAL SQ SCH ×2 (05:34→17:35)
[2018-02-25] MEDS: Metoprolol XL (24 HR) Succ 50 MG TAB.ER.24H PO SCH ×2 (09:07→21:12)
[2018-02-25] MEDS: Divalproex (12 HR) 250 MG TABLET PO SCH ×2 (09:08→21:11)
[2018-02-25] MEDS: Folic Acid 1 MG TABLET PO SCH (09:08)
[2018-02-25] MEDS: Levofloxacin 750 MG/150 ML 750 MG/150 ML BAG IVPB SCH (09:08)
[2018-02-25] MEDS: CHLORPROMAZINE HCL 10 MG PO SCH ×3 (09:10→21:00)
[2018-02-25] MEDS: clonazePAM 1 MG TABLET PO SCH ×3 (11:29→21:13)
[2018-02-25 12:05] LABS: Basophils # 0.1 K/mcL (0.0-0.2); Basophils % 0.4 %; Hematocrit 31.6 % (37.5-50.1); Hemoglobin 10.3 g/dL (12.9-16.9); Lymphocytes # 1.1 K/mcL (0.6-4.6); Lymphocytes % 7.7 %; Mean Corpuscular HGB Conc 32.6 g/dL (31.6-35.5); Mean Corpuscular Hemoglobin 29.5 pg (28.0-33.3); Mean Corpuscular Volume 90.5 fL (83.0-100.0); Mean Platelet Volume 9.4 fL (9.4-12.4); Monocytes # 0.7 K/mcL (0.0-1.3); Monocytes % 5.1 %; Neutrophils # 11.6 K/mcL (1.6-8.9); Platelet Count 205 K/mcL (140-400); Red Blood Count 3.49 M/mcL (4.19-5.50); Red Cell Distribution Width 14.4 % (11.5-14.5); Segmented Neutrophils % 81.8 %
--- NOTE | 2018-02-25 15:47 | Internal Med Progress Note ---
Date of Encounter: 02/25/18 Time of Encounter: 10:15 - Assessment and plan (1) Pneumonia Current Visit: Yes Status: Suspected Assessment and plan: May not be new episode of pneumonia. Chest x-ray and CTA chest showed resolving old infiltrates. Blood cultures negative. Urine legionella and strep pneumoniae antigen negative. Continue IV Levaquin, hold cefepime and vancomycin at this time. Supportive care and supplemental oxygen. Follow-up pro-calcitonin level. Patient is significantly improved today, at baseline oxygen requirements. Worsening leukocytosis, unclear etiology. Check urine dipstick. Qualifiers: Pneumonia type: due to unspecified organism Laterality: bilateral Lung location: unspecified part of lung Qualified Code(s): J18.9 - Pneumonia, unspecified organism (2) Sepsis Current Visit: Yes Status: Suspected Assessment and plan: Presented with subjective fever, mild leukocytosis and tachycardia, unclear source of infection. Qualifiers: Sepsis type: sepsis due to unspecified organism Qualified Code(s): A41.9 - Sepsis, unspecified organism (3) COPD (chronic obstructive pulmonary disease) Current Visit: Yes Status: Chronic Assessment and plan: Continue when necessary breathing treatments, inhaled corticosteroids and supplemental oxygen. Empiric IV antibiotics as above. Qualifiers: COPD type: unspecified COPD Qualified Code(s): J44.9 - Chronic obstructive pulmonary disease, unspecified (4) DVT prophylaxis Current Visit: Yes Status: Acute (5) Lactic acidosis Current Visit: Yes Status: Acute Assessment and plan: Probably related to hypoxia and albuterol use. Lactic acid level improving, 2.7 today. (6) Chronic respiratory failure Current Visit: Yes Status: Chronic Qualifiers: Respiratory failure complication: hypoxia Qualified Code(s): J96.11 - Chronic respiratory failure with hypoxia (7) Hypothyroidism Current Visit: Yes Status: Chronic Qualifiers: Hypothyroidism type: unspecified Qualified Code(s): E03.9 - Hypothyroidism , unspecified (8) Anxiety and depression Current Visit: Yes Status: Chronic (9) HLD (hyperlipidemia) Current Visit: Yes Status: Chronic Qualifiers: Hyperlipidemia type: unspecified Qualified Code(s): E78.5 - Hyperlipidemia , unspecified (10) HTN (hypertension) Current Visit: Yes Status: Chronic Qualifiers: Hypertension type: essential hypertension Qualified Code(s): I10 - Essential (primary) hypertension (11) ELMER (obstructive sleep apnea) Current Visit: Yes Status: Suspected Assessment and plan: Patient follows with outpatient pulmonology, being worked up for possible obstructive sleep apnea, pending outpatient sleep study next month. - Time Spent With Patient Total time spent is greater than 50% in coordination of care (as documented) at patient's floor/unit and/or counseling patient: - Subjective Interval history: Reports feeling better and wanting to go home! Improved shortness of breath, cough and distress; no chest pain, fever/chills- he does report fever at home but nine documented here so far; at baseline O2 requirements; - Constitutional Vitals: Temp Pulse Resp BP Pulse Ox 97.8 F 97 18 113/83 97 02/25/18 07:01 02/25/18 10:41 02/25/18 10:41 02/25/18 10:41 02/25/18 10:41 General appearance: Present: A&O X 3, obese, answers questions appropriately - Respiratory Respiratory exam: Present: CTAB (coarse breath sounds B/L). Absent: accessory muscle use, rales, rhonchi, wheezes - Cardiovascular Cardiovascular exam: Present: RRR, +S1, +S2. Absent: diastolic murmur, gallop, rubs, systolic murmur - GI/Abdominal GI/Abdominal exam: Present: normal bowel sounds, soft, no peritoneal signs. Absent: distended, tenderness - Extremities Exam Extremities exam: Present: full ROM, pedal edema (trace B/L), warm, radial pulses palpable and symmetrical. Absent: calf tenderness, cyanotic - Neurological Exam Neurological exam: Present: CN II-XII intact, oriented X3, no focal deficits. Absent: pronater drift, facial droop, speech deficit Internal Medicine: Result - Labs CBC & Chem 7: 02/25/18 11:51 02/25/18 04:19 Labs: Short CBC 02/25/18 02/25/18 Range/Units 04:19 11:51 WBC 13.8 H D 14.2 H (4.3-11.1) K/mcL Hgb 9.3 L D 10.3 L (12.9-16.9) g/dL Hct 29.0 L 31.6 L (37.5-50.1) % Plt Count 191 205 (140-400) K/mcL Neutrophils # 11.4 H 11.6 H (1.6-8.9) K/mcL BMP 02/25/18 04:19 Sodium 131 L Potassium 4.4 Chloride 98 Carbon Dioxide 24 BUN 13 Creatinine 0.76 Glucose 217 H Calcium 8.7 - ABG Interpretation ABG results: PT/INR, D-dimer PT 10.2 Seconds (9.4-12.1) 02/24/18 03:09 Consult Discharge Plan - Plan Referrals: Tri Gonzalez CNP [Primary Care Provider] -
[2018-02-25 20:23] LABS: Bilirubin,Urine Negative (Negative); Blood,Urine Negative (Negative); Clarity,Urine Clear (Clear); Color,Urine Yellow (Yellow); Glucose,Urine (UA) Normal (Normal); Ketones,Urine Negative (Negative); Leukocyte Esterase,Urine Negative (Negative); Nitrite,Urine Negative (Negative); Protein,Urine Negative (Neg-Trace); Specific Gravity,Urine 1.019 (1.010-1.025); Urobilinogen,Urine Normal (Normal)
[2018-02-25] MEDS: *HR* OxyCODONE/APAP 5/325 TABLET PO PRN (21:13)
[2018-02-26 04:31] LABS: Basophils % 0.3 %; Eosinophils % 0.3 %; Hematocrit 31.3 % (37.5-50.1); Hemoglobin 10.1 g/dL (12.9-16.9); Immature Granulocytes % 9.9 % (0-4); Lymphocytes # 2.1 K/mcL (0.6-4.6); Lymphocytes % 17.9 %; Mean Corpuscular HGB Conc 32.3 g/dL (31.6-35.5); Mean Corpuscular Volume 89.9 fL (83.0-100.0); Mean Platelet Volume 9.2 fL (9.4-12.4); Monocytes # 0.8 K/mcL (0.0-1.3); Monocytes % 6.6 %; Neutrophils # 7.7 K/mcL (1.6-8.9); Platelet Count 218 K/mcL (140-400); Red Blood Count 3.48 M/mcL (4.19-5.50); Red Cell Distribution Width 14.9 % (11.5-14.5)
[2018-02-26 04:42] LABS: BUN/Creatinine Ratio 17 (6-26); Blood Urea Nitrogen 15 mg/dL (6-20); Calcium 8.7 mg/dL (8.6-10.3); Carbon Dioxide 27 mEq/L (23-29); Chloride 103 mEq/L (98-107); Glucose 158 mg/dL (70-105); Osmolality,Calculated 292 (280-300); Sodium 139 mEq/L (136-145); eGFR For African Americans > 60 (> 60); eGFR For Non-African Americans > 60 (> 60)
[2018-02-26 05:10] LABS: Platelet Estimate Normal (Normal)
[2018-02-26] MEDS: *HR* Heparin 5,000 UNIT/ML VIAL SQ SCH (06:33)
[2018-02-26] MEDS: *HR* OxyCODONE/APAP 5/325 TABLET PO PRN (06:39)
[2018-02-26] MEDS ORDERED: Furosemide 20 MG TABLET PO SCH (09:00)
[2018-02-26] MEDS: Metoprolol XL (24 HR) Succ 50 MG TAB.ER.24H PO SCH (09:09)
[2018-02-26] MEDS: Folic Acid 1 MG TABLET PO SCH (09:09)
[2018-02-26] MEDS: clonazePAM 1 MG TABLET PO SCH (09:11)
[2018-02-26] MEDS: Levofloxacin 750 MG/150 ML 750 MG/150 ML BAG IVPB SCH (09:13)
[2018-02-26] MEDS: CHLORPROMAZINE HCL 10 MG PO SCH (09:14)
[2018-02-26] MEDS: Divalproex (12 HR) 250 MG TABLET PO SCH (09:27)
[2018-02-26 10:15] VITALS: BP 110/75
--- NOTE | 2018-02-26 10:40 | Discharge Summary ---
- NOTES TO OUTPATIENT PROVIDER Notes to Outpatient Provider: Probable acute bronchitis, no Pneumonia; Date of Encounter: 02/26/18 Time of Encounter: 10:38 - Discharge Diagnosis (1) Pneumonia Priority: Primary Status: Suspected Qualifiers: Pneumonia type: due to unspecified organism Laterality: bilateral Lung location: unspecified part of lung Qualified Code(s): J18.9 - Pneumonia, unspecified organism (2) Sepsis Priority: Primary Status: Suspected Qualifiers: Sepsis type: sepsis due to unspecified organism Qualified Code(s): A41.9 - Sepsis, unspecified organism (3) COPD (chronic obstructive pulmonary disease) Priority: Secondary Status: Chronic Qualifiers: COPD type: unspecified COPD Qualified Code(s): J44.9 - Chronic obstructive pulmonary disease, unspecified (4) Lactic acidosis Priority: Primary Status: Acute (5) Chronic respiratory failure Priority: Secondary Status: Chronic Qualifiers: Respiratory failure complication: hypoxia Qualified Code(s): J96.11 - Chronic respiratory failure with hypoxia (6) Hypothyroidism Priority: Secondary Status: Chronic Qualifiers: Hypothyroidism type: unspecified Qualified Code(s): E03.9 - Hypothyroidism , unspecified (7) Anxiety and depression Priority: Secondary Status: Chronic (8) HLD (hyperlipidemia) Priority: Secondary Status: Chronic Qualifiers: Hyperlipidemia type: unspecified Qualified Code(s): E78.5 - Hyperlipidemia , unspecified (9) HTN (hypertension) Priority: Secondary Status: Chronic Qualifiers: Hypertension type: essential hypertension Qualified Code(s): I10 - Essential (primary) hypertension (10) ELMER (obstructive sleep apnea) Priority: Secondary Status: Suspected Hospital course: Mr. Barnard is a 52 year old male with the above medical problems who was admitted with worsening cough and shortness of breath. Sepsis and pneumonia was suspected, however currently ruled out. Chest x-ray and CT angiogram of chest showed improving old infiltrates and chronic granulomatous changes. He was initially started on broad-spectrum IV antibiotics, liters only continued on IV Levaquin for possible acute bronchitis. He did have elevated serum lactic acid at admission, which was likely due to hypoxia and albuterol use, which is currently normal. Patient is back to baseline oxygen requirements and is asymptomatic. He is medically stable for discharge with outpatient follow-up. Discharge discussed with: patient, nurse, case management - Time Spent with Patient Total time spent providing and/or coordinating discharge services: Greater than 30 minutes (45 min) - Discharge Medications Prescriptions: Levofloxacin [Levaquin] 750 mg PO DAILY #5 tablet Home Medications: Amitriptyline [Elavil] 150 mg PO HS 02/24/18 [History] Amlodipine Besylate 10 mg PO DAILY 02/24/18 [History] Atorvastatin [Lipitor] 20 mg PO HS 02/24/18 [History] Butalbit/Acetamin/Caff/Codeine [Mzdbti-Yual-Ulasfhmzrao-Codein] 1 each PO PRN PRN 02/24/18 [History] Chlorpromazine HCl 10 mg PO TID 02/24/18 [History] Divalproex Sodium [Depakote] 750 mg PO BID 02/24/18 [History] Donepezil [Aricept] 5 mg PO HS 02/24/18 [History] Folic Acid 1 mg PO DAILY 02/24/18 [History] Furosemide [Lasix] 20 mg PO DAILY 02/24/18 [History] HYDROcodone/Acet 5/325 mg [[place] 5-325 mg] 1 tab PO Q6H PRN 02/24/18 [History] Levothyroxine Sodium [Synthroid] 200 mcg PO DAILY 02/24/18 [History] Metoprolol Succinate 50 mg PO HS 02/24/18 [History] Metoprolol Succinate 100 mg PO DAILY 02/24/18 [History] Pantoprazole Sodium [Protonix] 40 mg PO DAILY 02/24/18 [History] SUMAtriptan Succinate [Sumavel Dosepro] 6 mg SQ PRN PRN MDD 12mg 02/24/18 [ History] SUMAtriptan succinate [Imitrex] 25 mg PO Q2H PRN MDD 50 MG 02/24/18 [History] clonazePAM [Klonopin] 1 mg PO TID 02/24/18 [History] Albuterol Sulfate [Albuterol Inhaler] 1 puff IH Q6H PRN 02/26/18 [History] Levofloxacin [Levaquin] 750 mg PO DAILY #5 tablet 02/26/18 [Rx] Allergies/Adverse Reactions: 3 Allergy/AdvReac Type Severity Reaction Status Date / Time Penicillins AdvReac Intermediate Vomiting Verified 02/24/18 02:49 Date of admission: 02/26/18 08:42 Primary care physician: Tri Gonzalez CNP Discharging clinician: Christen Underwood Anticipated date of discharge: 02/26/18 - Constitutional Vitals: Temp Pulse Resp BP Pulse Ox 97.8 F 89 18 110/75 96 02/26/18 10:15 02/26/18 10:15 02/26/18 10:15 02/26/18 10:15 02/26/18 10:15 General appearance: Present: A&O X 3, obese, answers questions appropriately - Respiratory Respiratory exam: Present: CTAB, wheezes (minimal wheezing at posterior bases). Absent: accessory muscle use, rales, rhonchi - Patient Status Disposition: Home, Self-Care Condition: Good Functional capacity at discharge: independent ambulation Overall status at discharge: patient is progressing back to baseline - Discharge Instructions Instructions: Levofloxacin (By mouth), Chronic Obstructive Pulmonary Disease ( DC), Pneumonia (DC) Follow Up With: Tri Gonzalez CNP [Primary Care Provider] - 03/04/18 10:30 am - Diet and Activity Activity: increase activity as tolerated, wear oxygen at all times (3-4L/min via [place]) Diet: low fat, low cholesterol, low salt diet
== END 2018-02-26 12:19 | disposition home or self-care (01) | DRG 871 ==
LOC: EMEROO 02:48 → 2NENU 02:48 → SUATTDRO 05:33 → 2NENU 06:35
PROVIDERS: ADMIT Family Medicine; ATTEND Internal Medicine

== ENCOUNTER 2018-09-28 18:23 | Inpatient (IN) ==
[2018-09-28] MEDS ORDERED: methylPREDNISolone 125 MG/2 ML VIAL IVP ONE (18:45)
[2018-09-28] MEDS ORDERED: Ipratropium/Albuterol Neb 3 ML IH ONE (18:45)
--- NOTE | 2018-09-28 18:55 | Emergency Department Note ---
Disposition Clinical Impression: Acute exacerbation of chronic obstructive airways disease, Oewfn-7-fhrneezivtr deficiency, Hyponatremia, Hyperglycemia PNA (pneumonia) Qualifiers: Pneumonia type: due to unspecified organism Laterality: bilateral Lung loca tion: unspecified part of lung Qualified Code(s): J18.9 - Pneumonia, unspecified organism Anemia Qualifiers: Anemia type: unspecified type Qualified Code(s): D64.9 - Anemia, unspecified Sepsis Qualifiers: Sepsis type: sepsis due to unspecified organism Qualified Code(s): A41.9 - Sepsis, unspecified organism Disposition: Admitted As Inpatient Condition: Fair Referrals: Tri Gonzalez CNP [Primary Care Provider] - Forms: ED Satisfaction Letter Time of Disposition: 21:14 General Adult HPI - General Chief complaint: ED Shortness of Breath/Dyspnea Stated complaint: JORGE X 2days Time Seen by Provider: 09/28/18 18:29 Source: patient Limitations: no limitations - History of Present Illness HPI Narrative: 53 y/o hx alpha-1 antitrypsin deficiency presents with worsening shortness of breath, productive cough and fevers to 102 over 2-3 days. He reports cough with productive brown septum streaked with blood. He was seen at [facility] ER yesterday and diagnosed with PNA based on chest X-ray then received one dose of unknown IV antibiotics and discharged home on doxycycline. He has increased need for his home oxygen from 3 L to 4L even at rest with duonebs treatments every 3 hours. He reports mid sternal chest pain worse with inspiration onset yesterday. Associated symptoms of fatigue and dizziness. Also reports bilateral eye pain with out changes in vision that is different from his chronic headache. reports that he has been intermittently confused. He follows with pulmonology at [facility] for weekly infusions and reports compliance with his daily inhalers. Most recent admission for sepsis due to HCAP in and COPD in . Family History of mother also with alpha-1 antitrypsin deficiency who of lung cancer. 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 He denies history of any extrapulmonary diagnosis or CKD. Pt Subjective Complaint: jorge Pain Scale: 6 - Related Data Home Medications Medication Instructions Recorded Confirmed Amitriptyline [Elavil] 150 mg PO HS 02/24/18 02/24/18 Amlodipine Besylate 10 mg PO DAILY 02/24/18 02/24/18 Atorvastatin [Lipitor] 20 mg PO HS 02/24/18 02/24/18 Butalbit/Acetamin/Caff/Codeine 1 each PO PRN PRN 02/24/18 02/24/18 [Zxjmqa-Wfip-Cviqdxzbvjf-Codein] Chlorpromazine HCl 10 mg PO TID 02/24/18 02/24/18 Divalproex Sodium [Depakote] 750 mg PO BID 02/24/18 02/24/18 Donepezil [Aricept] 5 mg PO HS 02/24/18 02/24/18 Folic Acid 1 mg PO DAILY 02/24/18 02/24/18 Furosemide [Lasix] 20 mg PO DAILY 02/24/18 02/24/18 HYDROcodone/Acet 5/325 mg [[place] 1 tab PO Q6H PRN 02/24/18 02/24/18 5-325 mg] Levothyroxine Sodium [Synthroid] 200 mcg PO DAILY 02/24/18 02/24/18 Metoprolol Succinate 50 mg PO HS 02/24/18 02/25/18 Metoprolol Succinate 100 mg PO DAILY 02/24/18 02/24/18 Pantoprazole Sodium [Protonix] 40 mg PO DAILY 02/24/18 02/24/18 SUMAtriptan Succinate [Sumavel 6 mg SQ PRN PRN MDD 12mg 02/24/18 02/24/18 Dosepro] SUMAtriptan succinate [Imitrex] 25 mg PO Q2H PRN MDD 50 MG 02/24/18 02/24/18 clonazePAM [Klonopin] 1 mg PO TID 02/24/18 02/24/18 Albuterol Sulfate [Albuterol 1 puff IH Q6H PRN 02/26/18 02/26/18 Inhaler] Previous Rx's Medication Instructions Recorded Levofloxacin [Levaquin] 750 mg PO DAILY #5 tablet 02/26/18 Allergies Allergy/AdvReac Type Severity Reaction Status Date / Time Penicillins AdvReac Intermediate Vomiting Verified 09/28/18 18:30 All systems ED: reviewed and negative except as stated. Constitutional: Reports: fever, chills, weakness Eyes: Reports: eye pain. Denies: vision change ENT ED: Denies: congestion Cardiovascular: Reports: chest pain, dyspnea on exertion. Denies: palpitations, syncope Respiratory: Reports: cough, dyspnea, wheezes, hemoptysis, sputum production Gastrointestinal: Denies: abdominal pain, nausea, vomiting, diarrhea Genitourinary: Denies: urgency, dysuria, frequency Musculoskeletal: Denies: back pain, neck pain Neurological: Reports: weakness, confusion. Denies: headache Psychiatric: Reports: anxiety, depression Endocrine: Reports: fatigue Past Medical History - Past Medical History Medical history: Reports: COPD, hyperlipidemia, hypertension, migraine, thyroid disease Surgical history: Reports: knee replacement Psychiatric history: Reports: anxiety, depression - Social History Smoking Status: Never smoker Smokeless Tobacco Status: No Alcohol use: Reports: none Drug use: Reports: none Physical Exam Patient is conversationally dypneic on 3 L . He is week but able to pull self up in bed. - General Limitations: no limitations General appearance: alert, in no apparent distress - Head Head exam: atraumatic, normocephalic, normal inspection - Eye Eye exam: Present: normal appearance, PERRL, EOMI. Absent: periorbital tenderness - ENT ENT exam: normal exam, normal oropharynx, mucous membranes moist - Chest Chest inspection: Present: normal inspection, symmetric chest wall rise. Absent: tenderness - Respiratory Respiratory exam: Present: wheezes, accessory muscle use. Absent: respiratory distress - Cardiovascular Cardiovascular exam: Present: regular rate, normal rhythm, normal heart sounds - Abdominal Exam Abdominal exam: Present: soft, Non-Tender, normal bowel sounds - Extremities Exam Extremities exam: Present: normal inspection, full ROM. Absent: tenderness - Back Exam Back exam: Present: normal inspection, full ROM. Absent: tenderness, paraspinal tenderness - Neurological Exam Neurological exam: Present: alert, oriented X3, CN II-XII intact. Absent: motor sensory deficit - Psychiatric Psychiatric exam: Present: flat affect. Absent: agitated, anxious - Skin Skin exam: Present: warm, intact, diaphoresis Course Course Narrative: 53 y/o M [id number] present with fever and shortness of breath onset 2-3 days previously diagnosed as PNA. On exam diaphoretic, conversationally dysnpic and diffuse wheezing treated with solumedrol and douneb. Routine labs with CBC and BMP concern of renal function affected by extrapulmonary alpha-1 antitryspin - plan for CTA chest if Scr acceptable. Atypical chest pain with out EKG changes with negative troponin - Reevaluation(s) Reevaluation #1: BNP with with mild hyponatremia and hyperglycemia. Scr 0.92 thus will precede with CTA. CBC with anemia at baseline. Concern for sepsis with tachycardiac and history of fever thus will obtain lact ic acid and blood cultures although patient already had two doses of antibiotics. Time: 19:48 Reevaluation #2: CTA shows multifocal PNA with patchy airspace disease. We will admit patient for PNA and start vanc and cefepine due to severity of underlying lung disease although last hospitalization was 6 months ago. Received IVF. Sepsis with SIRs criteria of febrile and tachypnea in patient who appears toxic despite lactic acid negative but blood cultures already obtained. Patient agrees to treatment plan. Time: 21:01 Reevaluation #3: Discussed case with Dr Pereira and patient accepted for admission with 2 NE level of care Time: 21:25 Vital Signs Temperature 98.0 F 09/28/18 18:27 Pulse Rate 107 09/28/18 18:27 Respiratory Rate 16 09/28/18 18:27 Blood Pressure 147/87 09/28/18 18:27 O2 Sat by Pulse Oximetry 92 09/28/18 18:27 Temperature 102.2 F H 09/28/18 18:52 Pulse Rate 105 09/28/18 21:04 Respiratory Rate 40 09/28/18 21:04 Blood Pressure 138/100 09/28/18 21:04 O2 Sat by Pulse Oximetry 95 09/28/18 21:04 Oxygen Delivery Oxygen Delivery Nasal Cannula Medical Decision Making - Medical Records Medical records reviewed: Yes I reviewed the patient's medical records. - Lab Data Lab results reviewed: Yes I reviewed the patient's lab results. Result diagrams: 09/28/18 18:53 09/28/18 18:53 Lab Results 09/28/18 09/28/18 09/28/18 Range/Units 18:53 18:53 19:23 WBC 3.8 L (4.3-11.1) K/mcL RBC 3.77 L (4.19-5.50) M/mcL Hgb 11.4 L (12.9-16.9) g/dL Hct 34.1 L (37.5-50.1) % MCV 90.5 (83.0-100.0) fL MCH 30.2 (28.0-33.3) pg MCHC 33.4 (31.6-35.5) g/dL RDW 13.6 (11.5-14.5) % Plt Count 143 (140-400) K/mcL MPV 10.3 (9.4-12.4) fL Immature Gran % 2.9 (0-4) % Seg Neutrophils % 72.3 % Lymphocytes % 14.4 % Monocytes % 9.9 % Eosinophils % 0.0 % Basophils % 0.5 % Neutrophils # 2.8 (1.6-8.9) K/mcL Lymphocytes # 0.6 (0.6-4.6) K/mcL Monocytes # 0.4 (0.0-1.3) K/mcL Eosinophils # 0.0 (0.0-0.6) K/mcL Basophils # 0.0 (0.0-0.2) K/mcL Sodium 131 L (136-145) mEq/L Potassium 3.5 (3.5-5.1) mEq/L Chloride 93 L (98-107) mEq/L Carbon Dioxide 26 (23-29) mEq/L BUN 11 (6-20) mg/dL Creatinine 0.92 (0.70-1.30) mg/dL Est GFR ( Amer) > 60 (> 60) Est GFR (Non-Af Amer) > 60 (> 60) BUN/Creatinine Ratio 12 (6-26) Glucose 118 H (70-105) mg/dL Calculated Osmolality 272 L (280-300) Lactic Acid 1.9 (0.5-2.2) mmol/L Calcium 8.9 (8.6-10.3) mg/dL Troponin I < 0.03 (< 0.04) ng/mL - Radiology Data Radiology results reviewed: Yes I reviewed the patient's radiology results. - EKG Data EKG #1 EKG shows normal: sinus rhythm, axis, QRS complexes, ST-T waves Rate: tachycardia When compared to previous EKG there are: no significant changes Interpretation: no acute changes, unchanged when compared to prior tracing (date) (02-24-18)
[2018-09-28 19:17] LABS: Basophils % 0.5 %; Hematocrit 34.1 % (37.5-50.1); Hemoglobin 11.4 g/dL (12.9-16.9); Immature Granulocytes % 2.9 % (0-4); Lymphocytes # 0.6 K/mcL (0.6-4.6); Lymphocytes % 14.4 %; Mean Corpuscular HGB Conc 33.4 g/dL (31.6-35.5); Mean Corpuscular Hemoglobin 30.2 pg (28.0-33.3); Mean Corpuscular Volume 90.5 fL (83.0-100.0); Mean Platelet Volume 10.3 fL (9.4-12.4); Monocytes # 0.4 K/mcL (0.0-1.3); Monocytes % 9.9 %; Neutrophils # 2.8 K/mcL (1.6-8.9); Platelet Count 143 K/mcL (140-400); Red Blood Count 3.77 M/mcL (4.19-5.50); Red Cell Distribution Width 13.6 % (11.5-14.5); Segmented Neutrophils % 72.3 %
[2018-09-28] MEDS ORDERED: Isovue-370 500 ML BOTTLE IVP ONE ×2 (19:30→20:30)
[2018-09-28 19:32] LABS: Troponin I < 0.03 ng/mL (< 0.04)
[2018-09-28 19:43] LABS: BUN/Creatinine Ratio 12 (6-26); Blood Urea Nitrogen 11 mg/dL (6-20); Calcium 8.9 mg/dL (8.6-10.3); Carbon Dioxide 26 mEq/L (23-29); Chloride 93 mEq/L (98-107); Glucose 118 mg/dL (70-105); Osmolality,Calculated 272 (280-300); Potassium 3.5 mEq/L (3.5-5.1); Sodium 131 mEq/L (136-145); eGFR For Non-African Americans > 60 (> 60)
--- NOTE | 2018-09-28 20:35 | Emergency Department Note ---
Disposition Clinical Impression: Acute exacerbation of chronic obstructive airways disease, Qjjge-1-bhbenxldpcz deficiency PNA (pneumonia) Qualifiers: Pneumonia type: due to unspecified organism Laterality: bilateral Disposition: Admitted As Inpatient Condition: Fair Referrals: Tri Gonzalez CNP [Primary Care Provider] - Forms: ED Satisfaction Letter General Adult HPI - General Chief complaint: ED Shortness of Breath/Dyspnea Stated complaint: COLIN X 2days Time Seen by Provider: 09/28/18 18:29 Source: patient Limitations: no limitations - History of Present Illness Pain Scale: 6 - Related Data Home Medications Medication Instructions Recorded Confirmed Amitriptyline [Elavil] 150 mg PO HS 02/24/18 02/24/18 Amlodipine Besylate 10 mg PO DAILY 02/24/18 02/24/18 Atorvastatin [Lipitor] 20 mg PO HS 02/24/18 02/24/18 Butalbit/Acetamin/Caff/Codeine 1 each PO PRN PRN 02/24/18 02/24/18 [Qvglfc-Vakp-Lsyhrekwsef-Codein] Chlorpromazine HCl 10 mg PO TID 02/24/18 02/24/18 Divalproex Sodium [Depakote] 750 mg PO BID 02/24/18 02/24/18 Donepezil [Aricept] 5 mg PO HS 02/24/18 02/24/18 Folic Acid 1 mg PO DAILY 02/24/18 02/24/18 Furosemide [Lasix] 20 mg PO DAILY 02/24/18 02/24/18 HYDROcodone/Acet 5/325 mg [[place] 1 tab PO Q6H PRN 02/24/18 02/24/18 5-325 mg] Levothyroxine Sodium [Synthroid] 200 mcg PO DAILY 02/24/18 02/24/18 Metoprolol Succinate 50 mg PO HS 02/24/18 02/25/18 Metoprolol Succinate 100 mg PO DAILY 02/24/18 02/24/18 Pantoprazole Sodium [Protonix] 40 mg PO DAILY 02/24/18 02/24/18 SUMAtriptan Succinate [Sumavel 6 mg SQ PRN PRN MDD 12mg 02/24/18 02/24/18 Dosepro] SUMAtriptan succinate [Imitrex] 25 mg PO Q2H PRN MDD 50 MG 02/24/18 02/24/18 clonazePAM [Klonopin] 1 mg PO TID 02/24/18 02/24/18 Albuterol Sulfate [Albuterol 1 puff IH Q6H PRN 02/26/18 02/26/18 Inhaler] Previous Rx's Medication Instructions Recorded Levofloxacin [Levaquin] 750 mg PO DAILY #5 tablet 02/26/18 Allergies Allergy/AdvReac Type Severity Reaction Status Date / Time Penicillins AdvReac Intermediate Vomiting Verified 09/28/18 18:30 Constitutional: Reports: fever, chills, weakness Eyes: Reports: eye pain. Denies: vision change ENT ED: Denies: congestion Cardiovascular: Reports: chest pain, dyspnea on exertion. Denies: palpitations, syncope Respiratory: Reports: cough, dyspnea, wheezes, hemoptysis, sputum production Gastrointestinal: Denies: abdominal pain, nausea, vomiting, diarrhea Genitourinary: Denies: urgency, dysuria, frequency Musculoskeletal: Denies: back pain, neck pain Neurological: Reports: weakness, confusion. Denies: headache Psychiatric: Reports: anxiety, depression Endocrine: Reports: fatigue Past Medical History - Past Medical History Medical history: Reports: COPD, hyperlipidemia, hypertension, migraine, thyroid disease Surgical history: Reports: knee replacement Psychiatric history: Reports: anxiety, depression - Social History Smoking Status: Never smoker Smokeless Tobacco Status: No Alcohol use: Reports: none Drug use: Reports: none Physical Exam - General Limitations: no limitations General appearance: alert, in no apparent distress Course Vital Signs Temperature 98.0 F 09/28/18 18:27 Pulse Rate 107 09/28/18 18:27 Respiratory Rate 16 09/28/18 18:27 Blood Pressure 147/87 09/28/18 18:27 O2 Sat by Pulse Oximetry 92 09/28/18 18:27 Temperature 102.2 F H 09/28/18 18:52 Pulse Rate 105 09/28/18 18:52 Respiratory Rate 20 09/28/18 20:34 Blood Pressure 124/89 09/28/18 18:52 O2 Sat by Pulse Oximetry 96 09/28/18 20:34 Oxygen Delivery Oxygen Delivery Nasal Cannula Medical Decision Making - MDM Narrative Medical decision making narrative: CT reveals multifocal pneumonia. No evidence of coronary embolus. We started the patient on cefepime and vancomycin. Patient will be admitted. Given some IV fluids. He is hemodynamic stable. His lactate was normal. - Medical Records Medical records reviewed: Yes I reviewed the patient's medical records. - Lab Data Lab results reviewed: Yes I reviewed the patient's lab results. Result diagrams: 09/28/18 18:53 09/28/18 18:53 Lab Results 09/28/18 09/28/18 09/28/18 Range/Units 18:53 18:53 19:23 WBC 3.8 L (4.3-11.1) K/mcL RBC 3.77 L (4.19-5.50) M/mcL Hgb 11.4 L (12.9-16.9) g/dL Hct 34.1 L (37.5-50.1) % MCV 90.5 (83.0-100.0) fL MCH 30.2 (28.0-33.3) pg MCHC 33.4 (31.6-35.5) g/dL RDW 13.6 (11.5-14.5) % Plt Count 143 (140-400) K/mcL MPV 10.3 (9.4-12.4) fL Immature Gran % 2.9 (0-4) % Seg Neutrophils % 72.3 % Lymphocytes % 14.4 % Monocytes % 9.9 % Eosinophils % 0.0 % Basophils % 0.5 % Neutrophils # 2.8 (1.6-8.9) K/mcL Lymphocytes # 0.6 (0.6-4.6) K/mcL Monocytes # 0.4 (0.0-1.3) K/mcL Eosinophils # 0.0 (0.0-0.6) K/mcL Basophils # 0.0 (0.0-0.2) K/mcL Sodium 131 L (136-145) mEq/L Potassium 3.5 (3.5-5.1) mEq/L Chloride 93 L (98-107) mEq/L Carbon Dioxide 26 (23-29) mEq/L BUN 11 (6-20) mg/dL Creatinine 0.92 (0.70-1.30) mg/dL Est GFR ( Amer) > 60 (> 60) Est GFR (Non-Af Amer) > 60 (> 60) BUN/Creatinine Ratio 12 (6-26) Glucose 118 H (70-105) mg/dL Calculated Osmolality 272 L (280-300) Lactic Acid 1.9 (0.5-2.2) mmol/L Calcium 8.9 (8.6-10.3) mg/dL Troponin I < 0.03 (< 0.04) ng/mL - Radiology Data Radiology results reviewed: Yes I reviewed the patient's radiology results. Critical Care Time Critical Care Time: Yes Total Critical Care Time: 35 Attestation: Medical care time of 35 minutes spent in medical management of multifocal p neumonia and shortness of breath and consultation with hospitalist. Attestation Statement - Attestation Attestation: I examined this patient and my medical decision-making was reviewed with the Resident Physician. I agree with the documented findings, disposition and treatment plan as described except to the extent set forth below. 53-year-old male presents emergency room for cough and shortness of breath. Patient has a history of alpha-1 antitrypsin deficiency. Patient has noted over the past couple days increasing work of breathing with wheezing and cough. Patient appears ill on exam. He does do home nebulizer treatments. His been using those. No relief or improvement with them. He is had fevers for the past 2 days up to 102. Concerns for possible pneumonia. He was seen at an outlying emergency room yesterday and was diagnosed with a pneumonia. He also admits to coughing up of some blood. He denies any history of DVT or PE. No long travels in a car plane. He is very wheezy on exam. He does wear chronic home oxygen as well to secondary to the alpha-1 antitrypsin deficiency. He receives treatments for that with injections.
[2018-09-28] MEDS ORDERED: 0.9 % Sodium Chloride 1,000 ML IVC ONE (20:36)
[2018-09-28] MEDS ORDERED: Cefepime HCl 2,000 MG in Water for inj. (sterile) 20 ML 20 ML IVP ONE (21:00)
[2018-09-28] MEDS ORDERED: Naloxone 0.4 MG/ML INJ IVP PRN (21:47)
[2018-09-28] MEDS ORDERED: Acetaminophen 325 MG TABLET PO PRN (21:50)
[2018-09-28] MEDS ORDERED: Ondansetron 4 MG/2 ML VIAL IVP PRN (22:55)
[2018-09-28] MEDS ORDERED: Ketorolac 15 MG/ML VIAL IVP ONE (22:58)
--- NOTE | 2018-09-28 23:05 | Internal Med History&Physical ---
<Derek Geiger - Last Filed: 09/29/18 00:32> Date of Encounter: 09/29/18 Time of Encounter: 10:25 Internal Medicine - H&P: HPI Chief complaint: Dyspnea Admitted From: Home Plans for Post Hospital Care: Home History of present illness: Mr. 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 He has had 2-3 days of worsening dyspnea, productive cough with brownish sputum with occasional blood streaks, chest pain after coughing, and requiring increased amounts of home O2. He was evaluated at [facility] ED yesterday and dx with pneumonia based on cxr, given iv abx and sent home with doxy. He was breathing worse and came to [place] ED. He additionally admits to subjective fever/chills as high as 102F, malaise, one episode of vomiting after coughing, increased work of breathing and now dyspneic with conversation. Recently, he has also had orthopnea, PND, and peripheral edema which requires him to sleep in recliner. He denies diplopia, blurry vision, dizziness/lightheadedness, diaphoresis, hematemesis, abdominal pain. Within the ED he was febrile at 102.2, tachycardic, tachypneic with RR 30-40's, wbc 3.8, lactic 1.9, and evidence of multifocal pneumonia on CTA chest. Was started on broad spectrum abx and admitted to hospital. Past Med Surg Social Fam HX - Past Medical History Medical history: COPD, hyperlipidemia, hypertension, migraine, thyroid disease Additional medical history: alpha 1. recurrent pneuomia Psychiatric history: anxiety, depression - Past Surgical History Surgical History: knee replacement Additional surgical history: bilat knee surgery - Social History Smoking Status: Never smoker Smokeless Tobacco Status: No Alcohol use: none Drug use: none - Family History Brother Family Member Ethnicity: Non- Living Status: Still Living Father Family Member Ethnicity: Non- Living Status: Hx Family Cardiac Disorders: Yes (MS) Mother Family Member Ethnicity: Non- Living Status: Hx Family Respiratory Disorders: Yes (Alpha 1 antitrypsin deficiency) Hx Family Cancer: Yes (Adrenal, lung) Hx Family Endocrine Disorder: Yes (Thyroid disease) Sister Family Member Ethnicity: Non- Living Status: Still Living Hx Family Cardiac Disorders: Yes (CAD) Hx Family Respiratory Disorders: Yes (Alpha 1 antitrypsin deficiency) Internal Medicine - H&P: Meds RX: Amitriptyline [Elavil] 150 mg PO HS 02/24/18 [History] RX: Amlodipine Besylate 10 mg PO DAILY 02/24/18 [History] RX: Atorvastatin [Lipitor] 20 mg PO HS 02/24/18 [History] RX: Chlorpromazine HCl 10 mg PO TID 02/24/18 [History] RX: Divalproex Sodium [Depakote] 750 mg PO BID 02/24/18 [History] RX: Donepezil [Aricept] 5 mg PO BID 02/24/18 [History] RX: Folic Acid 1 mg PO DAILY 02/24/18 [History] RX: Furosemide [Lasix] 20 mg PO DAILY 02/24/18 [History] RX: HYDROcodone/Acet 5/325 mg [[place] 5-325 mg] 1 tab PO Q6H PRN 02/24/18 [History] RX: Levothyroxine Sodium [Synthroid] 200 mcg PO DAILY 02/24/18 [History] RX: Metoprolol Succinate 50 mg PO HS 02/24/18 [History] RX: Metoprolol Succinate 100 mg PO QAM 02/24/18 [History] RX: Pantoprazole Sodium [Protonix] 40 mg PO DAILY PRN 02/24/18 [History] RX: SUMAtriptan Succinate [Sumavel Dosepro] 6 mg SQ PRN PRN MDD 12mg 02/24/18 [History] RX: SUMAtriptan succinate [Imitrex] 25 mg PO Q2H PRN MDD 50 MG 02/24/18 [History] RX: clonazePAM [Klonopin] 1 mg PO TID 02/24/18 [History] RX: Albuterol Sulfate [Albuterol Inhaler] 1 - 2 puff IH Q4H PRN 02/26/18 [History] Aspirin [Lo-Dose Aspirin EC] 81 mg PO DAILY 09/28/18 [History] Fluticasone Propionate Nasal [Flonase] 50 mcg NS DAILY PRN 09/28/18 [History] Memantine [Namenda] 5 mg PO HS 09/28/18 [History] Mv-Mn/Folic Acid/Lutein/Hyt442 [Mens Multivit High Potency Tab] 1 each PO DAILY 09/28/18 [History] Allergy/AdvReac Type Severity Reaction Status Date / Time Penicillins AdvReac Intermediate Vomiting Verified 09/28/18 18:30 All Systems PM: A 10-system review of systems was performed and is negative for pertinent fi ndings except as documented above in the HPI. - Constitutional Vitals: Temp Pulse Resp BP Pulse Ox 100.6 F H 93 36 113/70 91 09/28/18 21:44 09/28/18 22:42 09/28/18 22:42 09/28/18 22:42 09/28/18 22:42 General appearance: Present: cooperative, mild distress, A&O X 3, pleasant, answers questions appropriately Exam: - - Head Head exam: Present: atraumatic, normal inspection, normocephalic - Eye Eye exam: Present: normal appearance - ENT ENT exam: Present: mucous membranes dry - Neck Neck exam general surgery: Present: supple, trachea midline - Respiratory Respiratory exam: Present: accessory muscle use, decreased breath sounds, prolonged expiratory phase, wheezes, tachypnea. Absent: rales, rhonchi, stridor - Cardiovascular Cardiovascular exam: Present: +S1, +S2, tachycardia (regular rhythm). Absent: bradycardia, clicks, diastolic murmur, distant heart sounds, gallop, irregular rhythm, JVD, RRR, rubs, +S3, +S4, systolic murmur - GI/Abdominal GI/Abdominal exam: Present: distended, soft. Absent: firm, guarding, rebound, rigid, tenderness - Extremities Exam Extremities exam: Present: normal capillary refill, pedal edema (1+ bilat), warm, radial pulses palpable and symmetrical. Absent: calf tenderness, cyanotic, mottling, tenderness - Neurological Exam Neurological exam: Present: alert, CN II-XII intact, no focal deficits. Absent: facial droop, speech deficit - Psychiatric Psychiatric exam: Present: normal affect, normal mood - Skin Skin exam: Present: dry, intact, normal color, warm. Absent: abrasion, cyanosis, diaphoretic, erythema, excoriation, mottled, pallor, petechiae, rash, urticaria, vesicles Internal Med - H&P Results - Labs CBC & Chem 7: 09/28/18 18:53 09/28/18 18:53 Labs: Short CBC 09/28/18 Range/Units 18:53 WBC 3.8 L (4.3-11.1) K/mcL Hgb 11.4 L (12.9-16.9) g/dL Hct 34.1 L (37.5-50.1) % Plt Count 143 (140-400) K/mcL Neutrophils # 2.8 (1.6-8.9) K/mcL BMP 09/28/18 18:53 Sodium 131 L Potassium 3.5 Chloride 93 L Carbon Dioxide 26 BUN 11 Creatinine 0.92 Glucose 118 H Calcium 8.9 Cardiac Enzymes 09/28/18 Range/Units 18:53 Troponin I < 0.03 (< 0.04) ng/mL - Impressions ITS Impressions Chest CTA 09/28/18 19:30 IMPRESSION: 1. Suboptimal exam due to poor opacification of the pulmonary artery. Within these limitations, there is no evidence of pulmonary embolism. 2. Multifocal pulmonary opacities, overall diminished since the prior exam but with some persistent patchy airspace disease as described above suspicious of multifocal pneumonia with some pulmonary scarring related to chronic infection. D/ / 09/28/2018 20:48:44 Juan Mason / ya Interpreting Provider: Juan Mason - Assessment and plan (1) Sepsis Current Visit: No Status: Acute Assessment and plan: -Febrile, tachycardic, tachypneic with likely multifocal pneumonia on CTA chest -CTA chest 09/28/18: No evidence of PE but limited, multifocal opacities, persistent patchy airspace disease suspicicous of multifocal pneumonia, small bilat pleural effusions -WBC 3.8, lactic 1.9, trop neg -Temp 102.2, HR 40, BP 138/100, and 95% on 4L -BC x2 pending -Given IVF bolus and started on broad spectrum abx including vanc and cefepime due to penicillin allergy Qualifiers: Sepsis type: sepsis due to unspecified organism Qualified Code(s): A41.9 - Sepsis, unspecified organism (2) Acute and chronic respiratory failure Current Visit: Yes Status: Acute Assessment and plan: -Likely 2/2 COPD exacerbation with concomitant multifocal pneumonia -Requiring increased home O2, RR in 30-40s in ED with increased work of breathing -Will continue broad spectrum abx, scheduled brochodilators, steroids, and BiPAP Qualifiers: Respiratory failure complication: hypoxia Qualified Code(s): J96.21 - Acute and chronic respiratory failure with hypoxia (3) Multifocal pneumonia Current Visit: Yes Status: Acute Assessment and plan: -Brown productive cough with blood streaks, subjective fevers/chills, worsening dyspnea, and increased home O2 needs for 2-3 days -Visited [facility] ED yesterday and dx with pneumonia with cxr, given IV abx and sent home with doxy -CTA chest 09/28/18: No evidence of PE but limited, multifocal opacities, persistent patchy airspace disease suspicicous of multifocal pneumonia, small bilat pleural effusions -Febrile at 102.2F, HR 105, RR 40 -WBC 3.8, lactic wnl -Flu swab pending -Procalcitonin pending -Will continue broad spectrum abx, BiPAP (4) COPD with acute exacerbation Current Visit: Yes Status: Acute Assessment and plan: -Hx of COPD 2/2 A1AT deficiency exacerbated by likely multifocal pneumonia on CTA chest -Management as above (5) Heart failure with reduced ejection fraction Current Visit: Yes Status: Suspected Assessment and plan: -Complaints of orthopnea, PND, edema, increasing weight, and dyspnea over last couple months -Will get TTE, BNP, continue diuretics, daily weight and monitor I&O's for now Qualifiers: Heart failure chronicity: acute Qualified Code(s): I50.21 - Acute systolic (congestive) heart failure (6) ELMER (obstructive sleep apnea) Current Visit: No Status: Chronic Assessment and plan: -Hx of ELMER on CPAP at home -Will continue BiPAP (7) HLD (hyperlipidemia) Current Visit: No Status: Chronic Assessment and plan: -Hx of HLD -Will continue home meds Qualifiers: Hyperlipidemia type: unspecified Qualified Code(s): E78.5 - Hyperlipidemia, unspecified (8) Migraines Current Visit: No Status: Chronic Assessment and plan: -Hx of migraines with current posterior eye pressure complaints -Will continue home meds Qualifiers: Migraine type: unspecified Status migrainosus presence: without status migrainosus Intractability: not intractable Qualified Code(s): G43.909 - Migraine, unspecified, not intractable, without status migrainosus (9) DVT prophylaxis Current Visit: No Status: Acute Assessment and plan: -SQ heparin (10) Essential (primary) hypertension Current Visit: Yes Status: Chronic Assessment and plan: -Hx of HTN -BP 147/87 on arrival -BP 131/84 most recently -Will continue home meds - Time Spent With Patient Total time spent is greater than 50% in coordination of care (as documented) at patient's floor/unit and/or counseling patient: <Zak Pereiracasi - Last Filed: 09/29/18 00:49> Date of Encounter: 09/28/18 Internal Medicine - H&P: HPI History of present illness: Mr. Barnard is a 53 year old male All Systems PM: A 10-system review of systems was performed and is negative for pertinent findings except as documented above in the HPI. - Constitutional Vitals: Temp Pulse Resp BP Pulse Ox 99.0 F 95 25 119/80 90 09/28/18 23:18 09/28/18 23:18 09/29/18 00:26 09/29/18 00:26 09/29/18 00:26 Internal Med - H&P Results - Labs CBC & Chem 7: 09/28/18 18:53 09/28/18 18:53 Labs: Short CBC 09/28/18 Range/Units 18:53 WBC 3.8 L (4.3-11.1) K/mcL Hgb 11.4 L (12.9-16.9) g/dL Hct 34.1 L (37.5-50.1) % Plt Count 143 (140-400) K/mcL Neutrophils # 2.8 (1.6-8.9) K/mcL BMP 09/28/18 18:53 Sodium 131 L Potassium 3.5 Chloride 93 L Carbon Dioxide 26 BUN 11 Creatinine 0.92 Glucose 118 H Calcium 8.9 Cardiac Enzymes 09/28/18 Range/Units 18:53 Troponin I < 0.03 (< 0.04) ng/mL - ABG Interpretation ABG results: 09/28/18 23:08 VBG pH 7.38 VBG pCO2 45 VBG pO2 59 H VBG HCO3 26 - Impressions ITS Impressions Chest CTA 09/28/18 19:30 IMPRESSION: 1. Suboptimal exam due to poor opacification of the pulmonary artery. Within these limitations, there is no evidence of pulmonary embolism. 2. Multifocal pulmonary opacities, overall diminished since the prior exam but with some persistent patchy airspace disease as described above suspicious of multifocal pneumonia with some pulmonary scarring related to chronic infection. D/ / 09/28/2018 20:48:44 Juan Mason / ya Interpreting Provider: Juan Mason - Assessment and plan (1) Sepsis Current Visit: No Status: Acute Qualifiers: Sepsis type: sepsis due to unspecified organism Qualified Code(s): A41.9 - Sepsis, unspecified organism (2) ELMER (obstructive sleep apnea) Current Visit: No Status: Chronic (3) HLD (hyperlipidemia) Current Visit: No Status: Chronic Qualifiers: Hyperlipidemia type: unspecified Qualified Code(s): E78.5 - Hyperlipidemia, unspecified (4) Migraines Current Visit: No Status: Chronic Qualifiers: Migraine type: unspecified Status migrainosus presence: without status migrainosus Intractability: not intractable Qualified Code(s): G43.909 - Migraine, unspecified, not intractable, without status migrainosus (5) DVT prophylaxis Current Visit: No Status: Acute (6) Acute and chronic respiratory failure Current Visit: Yes Status: Acute Qualifiers: Respiratory failure complication: hypoxia Qualified Code(s): J96.21 - Acute and chronic respiratory failure with hypoxia (7) Multifocal pneumonia Current Visit: Yes Status: Acute (8) COPD with acute exacerbation Current Visit: Yes Status: Acute (9) Heart failure with reduced ejection fraction Current Visit: Yes Status: Suspected Qualifiers: Heart failure chronicity: acute Qualified Code(s): I50.21 - Acute systolic (congestive) heart failure (10) Essential (primary) hypertension Current Visit: Yes Status: Chronic - Time Spent With Patient Total time spent is greater than 50% in coordination of care (as documented) at patient's floor/unit and/or counseling patient: - Attending Attestation I performed a history and physical exam of the patient on 09/28/17 and discussed management with the resident. I reviewed the resident's note and agree with the documented findings and plan of care. Cosmo Barnard will be admitted for acute on chronic hypoxic respiratory failure secondary to obstructive lung disease complicated by sepsis due to multifocal pneumonia in the setting of inadequate prior treatment warranting antimicrobial therapy. Physical exam remarkable for diffuse rhonchi and will continue nebulizer therapy as needed. Rest of care as per resident's notes.
[2018-09-28 23:11] LABS: VBG HCO3 26 mEq/L (21-27); VBG PCO2 45 mmHg (41-51); VBG PH 7.38 pH Units (7.32-7.42); VBG PO2 59 mmHg (25-50)
[2018-09-28] MEDS: *HR* Heparin 5,000 UNIT/ML VIAL SQ SCH (23:45)
[2018-09-29] MEDS: Ipratropium/Albuterol Neb 3 ML IH SCH ×8 (00:09→23:36)
[2018-09-29 04:21] LABS: Basophils % 0.6 %; Hematocrit 37.8 % (37.5-50.1); Hemoglobin 12.4 g/dL (12.9-16.9); Immature Granulocytes % 2.5 % (0-4); Lymphocytes # 0.5 K/mcL (0.6-4.6); Lymphocytes % 13.8 %; Mean Corpuscular HGB Conc 32.8 g/dL (31.6-35.5); Mean Corpuscular Volume 91.3 fL (83.0-100.0); Mean Platelet Volume 10.3 fL (9.4-12.4); Monocytes # 0.1 K/mcL (0.0-1.3); Monocytes % 2.5 %; Neutrophils # 2.9 K/mcL (1.6-8.9); Platelet Count 152 K/mcL (140-400); Red Blood Count 4.14 M/mcL (4.19-5.50); Red Cell Distribution Width 13.5 % (11.5-14.5); Segmented Neutrophils % 80.6 %
[2018-09-29 04:28] LABS: Prothrombin Time 11.1 Seconds (9.4-12.1)
[2018-09-29 04:38] LABS: BUN/Creatinine Ratio 13 (6-26); Blood Urea Nitrogen 13 mg/dL (6-20); Calcium 9.1 mg/dL (8.6-10.3); Carbon Dioxide 23 mEq/L (23-29); Chloride 96 mEq/L (98-107); Chol/HDL Ratio 5.3 (0-4.9); Cholesterol 217 mg/dL (< 200); Glucose 244 mg/dL (70-105); HDL Cholesterol 41 mg/dL (40-59); LDL Cholesterol,Calculated 153 mg/dL (0-99); Magnesium 2.2 mg/dL (1.6-2.6); Osmolality,Calculated 282 (280-300); Phosphorous 4.1 mg/dL (2.7-4.5); Sodium 132 mEq/L (136-145); Triglycerides 116 mg/dL (< 150); eGFR For Non-African Americans > 60 (> 60)
[2018-09-29] MEDS ORDERED: 0.9 % Sodium Chloride 1,000 ML IVC SCH (05:15)
[2018-09-29] MEDS: *HR* Heparin 5,000 UNIT/ML VIAL SQ SCH ×3 (05:41→20:36)
[2018-09-29] MEDS: MethylPREDNISolone 40 MG/ML VIAL IVP SCH ×2 (05:42→17:22)
[2018-09-29] MEDS: Cefepime HCl 2,000 MG in Water for inj. (sterile) 20 ML 20 ML IVP SCH ×3 (05:43→20:37)
[2018-09-29] MEDS: Metoprolol XL (24 HR) Succ 50 MG TAB.ER.24H PO SCH (08:47)
[2018-09-29] MEDS ORDERED: Furosemide 40 MG/4 ML VIAL IVP SCH (09:00)
[2018-09-29] MEDS: Aspirin Enteric Coated 81 MG Tablet PO SCH (12:19)
[2018-09-29] MEDS: amLODIPine 5 MG TABLET PO SCH (12:20)
[2018-09-29] MEDS: *HR* HYDROcodone/Acet 5/325 mg TABLET PO PRN (14:27)
[2018-09-29] MEDS ORDERED: clonazePAM 1 MG TABLET PO PRN (15:00)
[2018-09-29] MEDS ORDERED: chlorproMAZINE 25 MG TABLET PO SCH (15:00)
[2018-09-29] MEDS: chlorproMAZINE 25 MG TABLET PO SCH ×2 (15:06→20:37)
--- NOTE | 2018-09-29 15:17 | Electrocardiograph Report ---
[address] [place], [place] [address] Test Date: 2018-09-28 Pat Name: Cosmo Barnard Department: [id number] Room: 2A24 Gender: M [employer] Operator: : [id number] Requested By: Jada Riggs Order Number: [id number] Reading MD: Cassy Casas Measurements Intervals [place] Rate: 106 P: 51 MS: 177 QRS: 42 QRSD: 128 T: 57 QT: 354 QTc: 471 Interpretive Statements Sinus tachycardia IVCD Electronically Signed On 09-29-2018 15:16:46 EST by Cassy Casas
[2018-09-29] MEDS: Divalproex (12 HR) 250 MG TABLET PO SCH (20:37)
--- NOTE | 2018-09-29 21:53 | Internal Med Progress Note ---
Hospitalist Progress Note - Encounter Date of Encounter: 09/29/18 Time of Encounter: 19:00 - Subjective Interval History: SUBJECTIVE: The patient feels better. His breathing is not labored anymore. He does have mild cough but not wheezing. He is on 6 L/min nasal cannula oxygen; was using 3-4 L/min at home. Denies abdominal pain, nausea and vomiting. He has normal urination. OBJECTIVE: Skin: Free of rash and discoloration. ENMT: Oral/pharyngeal mucosa is normal in appearance. Eyes: Sclera is white. There is no discharge from eyes. Respiratory: Normal breath sounds; no crackles or wheezes. CV: Heart is regular; no gallop or murmur. GI: Abdomen is soft and not tender. There is no palpable mass or visceromegaly. Neuro: There is no focal deficits. ADDITIONAL DATA: 09/28: Chest x-ray shows multifocal pulmonary opacities with some persistent patchy airspace diseasesuspicious for multifocal pneumonia with some pulmonary scarring related to chronic infection. CBC shows hemoglobin of 12.4 with a WBC of 3.6 thousand. Electrolytes are normal. Creatinine is 1.00. Fasting glucose is 244, likely secondary to treatment with Solu-Medrol. Influenza A antigen is positive. Influenza B antigen is negative. ASSESSMENT AND PLAN: Pneumonia/COPD exacerbation/acute on chronic respiratory failure with hypoxia. Infection with influenza A. I will continue IV vancomycin and IV cefepime. Tamiflu will be added to his medications. He is on Solu-Medrol at 40 mg IV every 12 hours. He gets nebulizer treatments with DuoNeb every 4 hours. The patient was septic at admission. There is no evidence for congestive heart failure. His last echocardiogram from December 2017 showed normal ejection fraction and difficulty to assess diastolic function. - Exam Vitals: Temp Pulse Resp BP Pulse Ox 98.1 F 103 16 126/83 90 09/29/18 20:52 09/29/18 20:52 09/29/18 20:52 09/29/18 20:52 09/29/18 20:52 Exam: xx - Assessment and Plan (1) Multifocal pneumonia Current Visit: Yes Status: Acute (2) COPD with acute exacerbation Current Visit: Yes Status: Acute (3) Acute and chronic respiratory failure with hypoxia Current Visit: Yes Status: Acute (4) Sepsis Current Visit: Yes Status: Acute (5) Influenza A Current Visit: Yes Status: Acute (6) Essential (primary) hypertension Current Visit: Yes Status: Chronic (7) ELMER (obstructive sleep apnea) Current Visit: No Status: Chronic - Time Spent with Patient Total time spent is greater than 50% in coordination of care (as documented) at patient's floor/unit and/or counseling patient: 25 - 35 minutes Plan of Care Discussed with: patient (and family...) Internal Medicine: Result - Labs CBC & Chem 7: 09/29/18 03:39 09/29/18 03:39 Labs: Short CBC 09/29/18 Range/Units 03:39 WBC 3.6 L (4.3-11.1) K/mcL Hgb 12.4 L (12.9-16.9) g/dL Hct 37.8 (37.5-50.1) % Plt Count 152 (140-400) K/mcL Neutrophils # 2.9 (1.6-8.9) K/mcL BMP 09/29/18 03:39 Sodium 132 L Potassium 4.0 Chloride 96 L Carbon Dioxide 23 BUN 13 Creatinine 1.00 Glucose 244 H Calcium 9.1 - ABG Interpretation ABG results: PT/INR, D-dimer PT 11.1 Seconds (9.4-12.1) 09/29/18 03:39 - Impressions Impressions Echocardiogram 09/29/18 22:39 Impressions: LVEF 55%. Normal LV chamber size. Mild concentric left ventricular hypertrophy. Grossly normal right ventricular structure and function. Atypical septal motion consistent with bundle branch block. Mild left ventricular diastolic dysfunction. RVSP not well obtained due to poor TR jet. No obvious significant valvular dysfunction. Findings: Study Quality * Technically sub-optimal due to body habitus. ECG Findings * Sinus rhythm with BBB. Left Ventricle * LVEF 55%. Not all LV segments were well visualized, but overall LVEF appears normal. * Normal LV chamber size. * Mild concentric left ventricular hypertrophy. * Atypical septal motion consistent with bundle branch block. * Mild left ventricular diastolic dysfunction. Right Ventricle * Grossly normal right ventricular structure and function. Left Atrium * Mildly dilated left atrium. Right Atrium * Mildly dilated right atrium. Aortic Valve * Aortic valve not well visualized. * No aortic regurgitation. * No aortic stenosis. Mitral Valve * Normal mitral valve structure and function. * No mitral regurgitation. * No mitral stenosis. Tricuspid Valve * Normal tricuspid valve structure and function. * Trace tricuspid regurgitation. * RVSP not well obtained due to poor TR jet. Pulmonic Valve * Pulmonic valve not well visualized. * No pulmonic regurgitation. Aorta * Normally sized aortic root. Pericardium * The pericardium appears normal. IVC * The IVC is not well evaluated. Pulmonary Artery * Pulmonary artery not well visualized. Consult Discharge Plan - Plan Referrals: Tri Gonzalez CNP [Primary Care Provider] - 10/11/18 9:30 am (Please follow up as schedule....) ___ (4) Sepsis Qualifiers: Sepsis type: sepsis due to unspecified organism Qualified Code(s): A41.9 - Sepsis, unspecified organism
[2018-09-30] MEDS: Ipratropium/Albuterol Neb 3 ML IH SCH ×6 (03:48→23:42)
[2018-09-30] MEDS: Cefepime HCl 2,000 MG in Water for inj. (sterile) 20 ML 20 ML IVP SCH ×3 (04:42→21:41)
[2018-09-30] MEDS: *HR* Heparin 5,000 UNIT/ML VIAL SQ SCH ×3 (04:42→21:41)
[2018-09-30] MEDS: MethylPREDNISolone 40 MG/ML VIAL IVP SCH ×2 (04:42→17:40)
[2018-09-30] MEDS: Divalproex (12 HR) 250 MG TABLET PO SCH ×2 (09:51→21:41)
[2018-09-30] MEDS: *HR* HYDROcodone/Acet 5/325 mg TABLET PO PRN ×2 (09:51→15:57)
[2018-09-30] MEDS: Aspirin Enteric Coated 81 MG Tablet PO SCH (09:51)
[2018-09-30] MEDS: Folic Acid 1 MG TABLET PO SCH (09:51)
[2018-09-30] MEDS: chlorproMAZINE 25 MG TABLET PO SCH ×2 (09:52→21:42)
[2018-09-30] MEDS: Metoprolol XL (24 HR) Succ 50 MG TAB.ER.24H PO SCH (09:52)
[2018-09-30] MEDS: Furosemide 20 MG TABLET PO SCH (09:52)
[2018-09-30] MEDS: amLODIPine 5 MG TABLET PO SCH (09:52)
[2018-09-30] MEDS ORDERED: Aminoglycoside Consult 1 EACH MC ONE (10:59)
--- NOTE | 2018-09-30 21:58 | Internal Med Progress Note ---
Hospitalist Progress Note - Encounter Date of Encounter: 09/30/18 Time of Encounter: 19:00 - Subjective Interval History: SUBJECTIVE: The patient feels progressively better. He feels stronger. He has better appetite. He does have mild cough but no wheezing. Denies chest pain. Denies abdominal pain, nausea and vomiting. He makes good amounts of urine. He is currently on a 5 L/min nasal cannula oxygen. OBJECTIVE: Skin: Free of rash and discoloration. ENMT: Oral/pharyngeal mucosa is normal in appearance. Eyes: Sclera is white. There is no discharge from eyes. Respiratory: Normal breath sounds; no crackles or wheezes. CV: Heart is regular; no gallop or murmur. GI: Abdomen is soft and not tender. There is no palpable mass or visceromegaly. Neuro: There is no focal deficits. ADDITIONAL DATA: 09/28: Chest x-ray shows multifocal pulmonary opacities with some persistent patchy airspace diseasesuspicious for multifocal pneumonia with some pulmonary scarring related to chronic infection. Influenza A antigen is positive. Influenza B antigen is negative. ASSESSMENT AND PLAN: Pneumonia/COPD exacerbation/acute on chronic respiratory failure with hypoxia. Infection with influenza A. I will continue IV cefepime. He is on Tamiflu. I will substituted IV Solu-Medrol with oral prednisone. To continue nebulizer treatments with DuoNeb. IV vancomycin has been discontinued. There is no evidence for congestive heart failure. His last echocardiogram from December 2017 showed normal ejection fraction and difficulty to assess diastolic function. Hypertension. Under control. He is on amlodipine. Obstructive sleep apnea. He continues CPAP treatments. Deconditioning. He will start physical therapy from tomorrow. - Exam Vitals: Temp Pulse Resp BP Pulse Ox 97.8 F 88 17 121/75 91 09/30/18 19:51 09/30/18 19:51 09/30/18 19:51 09/30/18 19:51 09/30/18 19:51 Exam: xx - Assessment and Plan (1) Multifocal pneumonia Current Visit: Yes Status: Acute (2) COPD with acute exacerbation Current Visit: Yes Status: Acute (3) Acute and chronic respiratory failure with hypoxia Current Visit: Yes Status: Acute (4) Sepsis Current Visit: Yes Status: Resolved (5) Influenza A Current Visit: Yes Status: Acute (6) Essential (primary) hypertension Current Visit: Yes Status: Chronic (7) ELMER (obstructive sleep apnea) Current Visit: No Status: Chronic - Time Spent with Patient Total time spent is greater than 50% in coordination of care (as documented) at patient's floor/unit and/or counseling patient: 25 - 35 minutes Plan of Care Discussed with: patient Internal Medicine: Result - Labs CBC & Chem 7: 09/29/18 03:39 09/29/18 03:39 - ABG Interpretation ABG results: PT/INR, D-dimer PT 11.1 Seconds (9.4-12.1) 09/29/18 03:39 Consult Discharge Plan - Plan Referrals: Tri Gonzalez, CHAN [Primary Care Provider] - 10/11/18 9:30 am (Please follow up as schedule....) __ (4) Sepsis Qualifiers: Sepsis type: sepsis due to unspecified organism Qualified Code(s): A41.9 - Sepsis, unspecified organism
[2018-10-01] MEDS: Ipratropium/Albuterol Neb 3 ML IH SCH ×4 (03:45→15:38)
[2018-10-01] MEDS: *HR* Heparin 5,000 UNIT/ML VIAL SQ SCH ×2 (05:28→15:12)
[2018-10-01] MEDS: Cefepime HCl 2,000 MG in Water for inj. (sterile) 20 ML 20 ML IVP SCH ×2 (05:28→11:59)
[2018-10-01] MEDS ORDERED: predniSONE 20 MG TABLET PO SCH (08:00)
[2018-10-01] MEDS: Metoprolol XL (24 HR) Succ 50 MG TAB.ER.24H PO SCH (08:02)
[2018-10-01] MEDS: Furosemide 20 MG TABLET PO SCH (08:02)
[2018-10-01] MEDS: amLODIPine 5 MG TABLET PO SCH (08:02)
[2018-10-01] MEDS: Divalproex (12 HR) 250 MG TABLET PO SCH (08:02)
[2018-10-01] MEDS: Folic Acid 1 MG TABLET PO SCH (08:02)
[2018-10-01] MEDS: Aspirin Enteric Coated 81 MG Tablet PO SCH (08:03)
[2018-10-01] MEDS: chlorproMAZINE 25 MG TABLET PO SCH (08:03)
[2018-10-01 16:03] VITALS: BP 113/75
--- NOTE | 2018-10-01 16:58 | Discharge Summary ---
Orders not resulted at time of discharge: Pending orders 09/28/18 19:23 Culture,Blood [] Stat Date of Encounter: 10/01/18 Time of Encounter: 16:56 - Discharge Diagnosis (1) Multifocal pneumonia Priority: Primary Status: Acute (2) COPD with acute exacerbation Priority: Primary Status: Acute (3) Acute and chronic respiratory failure with hypoxia Priority: Primary Status: Acute (4) Sepsis Priority: Primary Status: Resolved Qualifiers: Sepsis type: sepsis due to unspecified organism Qualified Code(s): A41.9 - Sepsis, unspecified organism (5) Influenza A Priority: Primary Status: Acute (6) Essential (primary) hypertension Priority: Secondary Status: Chronic (7) ELMER (obstructive sleep apnea) Priority: Secondary Status: Chronic Hospital course: HOSPITAL COURSE: The patient is a 53-year-old male. He has underlying COPDtake supplemental oxygen at 3-4 L/min continuously. We admitted him with progressing dyspnea developing in the last 2-3 days preceding this admission. We found him to have multifocal pneumonia. Blood cultures have been to be negative. Nasal swab found him positive for influenza A. He was treated with IV vancomycin, IV Zosyn and oral Tamiflu. He got IV Solu- Medrol and nebulizer treatments with DuoNeb. He was initially at 6 L/min nasal cannula oxygen. The patient got significantly better by the time of discharge. CONDITION AT DISCHARGE: He feels good. He ambulates on his own. He is using supplemental oxygen at 4.5 L/min nasal cannulaat the rest. He has mild cough without wheezing. Denies chest pain. Denies abdominal pain, nausea and vomiting. He has normal urination. Skin: Free of rash and discoloration. Respiratory: Normal breath sounds with no crackles and wheezes bilaterally. CV: Heart is regular with no gallop or murmur. GI: Abdomen is flat and soft with no palpable mass or visceromegaly. Neuro exam: There is no focal deficits. Normal speech, swallowing and gait. SEE DISCHARGE ORDERS/MEDICATIONS He will be taking doxycycline at 100 mg by mouth twice a day for 7 days and Tamiflu at 75 mg by mouth twice a day for 3 days. I also gave him a tapering dose of prednisone. Discharge discussed with: patient, family, case management - Time Spent with Patient Total time spent providing and/or coordinating discharge services: Greater than 30 minutes (40 minutes...) - Discharge Medications Prescriptions: Doxycycline 100 mg PO BID 7 Days #14 capsule Oseltamivir [Tamiflu] 75 mg PO BID 3 Days #6 capsule PredniSONE [Deltasone] 20 mg PO AD #12 tablet Home Medications: Amitriptyline [Elavil] 150 mg PO HS 02/24/18 [History] Atorvastatin [Lipitor] 20 mg PO HS 02/24/18 [History] Chlorpromazine HCl 10 mg PO TID 02/24/18 [History] Divalproex Sodium [Depakote] 750 mg PO BID 02/24/18 [History] Donepezil [Aricept] 10 mg PO HS 02/24/18 [History] Folic Acid 1 mg PO DAILY 02/24/18 [History] Furosemide [Lasix] 20 mg PO DAILY 02/24/18 [History] HYDROcodone/Acet 5/325 mg [[place] 5-325 mg] 1 tab PO Q6H PRN 02/24/18 [History] Levothyroxine Sodium [Synthroid] 200 mcg PO DAILY 02/24/18 [History] Metoprolol Succinate 100 mg PO QAM 02/24/18 [History] Pantoprazole Sodium [Protonix] 40 mg PO BID 02/24/18 [History] SUMAtriptan Succinate [Sumavel Dosepro] 6 mg SQ PRN PRN MDD 12mg 02/24/18 [History] SUMAtriptan succinate [Imitrex] 25 mg PO Q2H PRN MDD 50 MG 02/24/18 [History] clonazePAM [Klonopin] 1 mg PO TID 02/24/18 [History] Albuterol Sulfate [Albuterol Inhaler] 1 - 2 puff IH Q4H PRN 02/26/18 [History] Aspirin [Lo-Dose Aspirin EC] 81 mg PO DAILY 09/28/18 [History] Fluticasone Propionate Nasal [Flonase] 50 mcg NS DAILY PRN 09/28/18 [History] Memantine [Namenda] 5 mg PO BID 09/28/18 [History] Mv-Mn/Folic Acid/Lutein/Nyu591 [Mens Multivit High Potency Tab] 1 each PO DAILY 09/28/18 [History] Ferrous Sulfate [Iron] 325 mg PO DAILY 09/29/18 [History] Ondansetron [Zuplenz] 4 mg PO Q6H PRN 09/29/18 [History] Umeclidinium Brm/Vilanterol Tr [Anoro Ellipta 62.5-25 Mcg INH] 1 each IH DAILY 09/29/18 [History] Doxycycline 100 mg PO BID 7 Days #14 capsule 10/01/18 [Rx] Oseltamivir [Tamiflu] 75 mg PO BID 3 Days #6 capsule 10/01/18 [Rx] PredniSONE [Deltasone] 20 mg PO AD #12 tablet 10/01/18 [Rx] Allergies/Adverse Reactions: Allergy/AdvReac Type Severity Reaction Status Date / Time Penicillins AdvReac Intermediate Vomiting Verified 09/28/18 18:30 Date of admission: 09/28/18 22:52 Primary care physician: Tri Gonzalez CNP Consults: 09/28/18 23:30 Consult to Outpatient Case Manager [CONS] Routine Reason for SW Consult: DC planning. Patient has home oxygen and CPAP with [facility]. Receives [facility] infusion every Thursday in [place] at [facility] infusion center. 09/29/18 09:42 Consult to Nurse Navigator [CONS] Routine Comment: COPD, pneumonia 09/30/18 22:10 Consult to Physical Therapy [CONS] Routine Comment: Evaluate, develop and implement POC Reason for Consult: DECONDITIONING... Does patient have active BEDREST order?: No Is patient medically & hemodynamically stable?: Yes Discharging clinician: Lito Acosta Anticipated date of discharge: 10/01/18 - Constitutional Vitals: Temp Pulse Resp BP Pulse Ox 98.7 F 85 16 113/75 92 10/01/18 15:58 10/01/18 15:58 10/01/18 15:58 10/01/18 15:58 10/01/18 15:58 General appearance: Present: A&O X 3, no acute distress, answers questions appropriately Exam: xx - Patient Status Disposition: Home, Self-Care Condition: Fair Functional capacity at discharge: independent ambulation Overall status at discharge: patient is progressing back to baseline - Discharge Instructions Instructions: Doxycycline (By mouth), Prednisone (By mouth), Oseltamivir (By mouth) Follow Up With: Tri Gonzalez CNP [Primary Care Provider] - 10/11/18 9:30 am (Please follow up as schedule....) - Diet and Activity Activity: increase activity as tolerated Diet: low fat, low cholesterol - VTE Deep Vein Thrombosis/Pulmonary Embolism Present on Admission: No
== END 2018-10-01 17:24 | disposition home or self-care (01) | DRG 871 ==
LOC: EMEROOARM 18:23 → 2ANU 18:23 → SUATTDRO 22:52 → 2ANU 23:18
PROVIDERS: ADMIT Internal Medicine; ATTEND Internal Medicine